=== PATIENT | male | born 1955 | race Caucasian/White ===

== ENCOUNTER 2025-04-01 15:36 | Inpatient (IN) | payer MEDICARE, OTHER, SELFPAY ==
--- NOTE | ~2025-04-01 | XR_ITS ---
EXAMINATION: XR knee LT 3V DATE: 04/01/2025 18:28 INDICATION: Left knee pain, erythema and swelling TECHNIQUE: Anteroposterior, oblique and crosstable lateral views of the left knee were obtained COMPARISON: None. FINDINGS: Alignment is normal. No fracture. At least mild tricompartmental osteoarthritis at the left knee with mild joint space narrowing the medial compartment and small marginal ossified small 3 compartments. Prominent enthesophyte at the lower pole of the patella. No joint effusion/layering lipohemarthrosis. Marked relatively dense prepatellar soft tissue swelling. IMPRESSION: 1. Marked relatively dense prepatellar soft tissue swelling which suggests either hematoma setting of prior trauma or prepatellar bursitis. 2. 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 Reviewed, dictated and finalized at location A. IMPRESSION: 1. Marked relatively dense prepatellar soft tissue swelling which suggests eith er hematoma setting of prior trauma or prepatellar bursitis. 2. At least mild tricompartmental osteoarthritis the left knee with no knee ramirez nt effusion or acute osseous abnormality.
[2025-04-01 15:40] VITALS: BP 168/76; PULSE 91; RESP 18; TEMP 36.8; O2SAT 98
--- NOTE | 2025-04-01 18:44 | ED_ITS ---
HPI - Skin/Abscess/Foreign Bdy General Chief complaint: Skin/Abscess/Foreign Body <Blossom Rodriguez PA-C - Last Filed: 04/01/25 23:45> Stated complaint: L knee infection, L toe infection? <Blossom Rodriguez PA-C - Last Filed: 04/01/25 23:45> Time Seen by Provider: 04/01/25 18:15 <Blossom Rodriguez PA-C - Last Filed: 04/01/25 23:45> Source: patient <Blossom Rodriguez PA-C - Last Filed: 04/01/25 23:45> Mode of arrival: ambulatory <Blossom Rodriguez PA-C - Last Filed: 04/01/25 23:45> Limitations: no limitations <Blossom Rodriguez PA-C - Last Filed: 04/01/25 23:45> History of Present Illness HPI narrative: This is a 69 year old male that presents to the ER for left knee redness, swelling. Reports this has been an ongoing issue over the last month. He was put on a 14 day course of cephalexin by urgent care. He has almost finished this without relief. Denies fevers, decreased ROM. <Blossom Rodriguez PA-C - Last Filed: 04/01/25 23:45> Related Data Home medications: Home Medications ?Medication ?Instructions ?Recorded ?Confirmed ?Last Taken ?Type ascorbate calcium (vitamin C) .ROUTE 04/02/25 Unknown History cholecalciferol (vitamin D3) .ROUTE 04/02/25 Unknown History fish xma-wynna-8-vit C-vit E PO 04/02/25 Unknown Hist ory <Blossom Rodriguez PA-C - Last Filed: 04/01/25 23:45> Allergies/Adverse reactions: Allergies Allergy/AdvReac Type Severity Reaction Status Date / Time No Known Allergies Allergy Verified 04/02/25 00:03 <Blossom Rodriguez PA-C - Last Filed: 04/01/25 23:45> Review of Systems 2 Review of Systems: All systems reviewed & are unremarkable except as noted in HPI and below <Blossom Rodriguez PA-C - Last Filed: 04/01/25 23:45> [facility] Past Medical History Medical History: Medical History (Updated 04/01/25 @ 20:44 by Blossom Rodriguez PA-C) No active medical problems <Blossom Rodriguez PA-C - Last Filed: 04/01/25 23:45> Family History Family History: Family History (Updated 04/02/25 @ 00:25 by Esvin Linder RN) Father Myocardial infarct Sibling Myocardial infarct Cancer Grandparent Cancer <Blossom Rodriguez PA-C - Last Filed: 04/01/25 23:45> Social History Social History: Social History Smoking status: Never smoker Alcohol intake: never Drinks per week: 1 Substance use: never Substance use type: does not use Lack of Transportation: No Lack of Food: Never True Current Housing: I Have Housing Concerned About Future Housing: No Difficulty Paying Gas/Electric Bills: No Difficulty Paying for Meds: No Currently Unemployed: No Education: Decline to Answer Difficulty w/ Childcare or Family Care: No Spiritual care concerns: No <Blossom Rodriguez PA-C - Last Filed: 04/01/25 23:45> Exam 2 Narrative: GENERAL: Well-appearing, well-nourished, and in no acute distress. HEAD: Normocephalic, atraumatic. EYES: EOMI. CHEST: No respiratory distress. HEART: Regular rate EXTREMITIES: Normal range of motion. Edema with overlying erythema to the left knee over the patella. Normal DP pulse. Normal sensation SKIN: Warm, dry, no rash. NEURO: No focal deficits. Alert and oriented x3. 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 I performed all aspects of the MDM as documented. <Miah Brooke MD - Last Filed: 04/02/25 07:16> Consultations Consultation #1: Spoke with Dr. Hernández about patient and workup who will consult <Blossom Rodriguez PA-C - Last Filed: 04/01/25 23:45> Date: 04/01/25 <Blossom Rodriguez PA-C - Last Filed: 04/01/25 23:45> Consultation #2: Spoke with hospitalist about patient and workup who accepts admission < Blossom Rodriguez PA-C - Last Filed: 04/01/25 23:45> Date: 04/01/25 <Blossom Rodriguez PA-C - Last Filed: 04/01/25 23:45> Vital Signs Vital signs: Vital Signs Temperature 36.8 C 04/01/25 15:40 Pulse Rate 91 04/01/25 15:40 Respiratory Rate 18 04/01/25 15:40 Blood Pressure 168/76 H 04/01/25 15:40 Pulse Oximetry 98 04/01/25 15:40 Oxygen Delivery Room Air 04/01/25 15:40 Temperature 36.2 C L 04/02/25 06:00 Pulse Rate 60 04/02/25 06:00 Respiratory Rate 18 04/02/25 06:00 Blood Pressure 142/74 H 04/02/25 06:00 Pulse Oximetry 98 04/02/25 06:00 Oxygen Delivery Room Air 04/01/25 15:40 <Blossom Rodriguez PA-C - Last Filed: 04/01/25 23:45> Vital Signs Temperature 36.8 C 04/01/25 15:40 Pulse Rate 91 04/01/25 15:40 Respiratory Rate 18 04/01/25 15:40 Blood Pressure 168/76 H 04/01/25 15:40 Pulse Oximetry 98 04/01/25 15:40 Oxygen Delivery Room Air 04/01/25 15:40 Temperature 36.2 C L 04/02/25 06:00 Pulse Rate 60 04/02/25 06:00 Respiratory Rate 18 04/02/25 06:00 Blood Pressure 142/74 H 04/02/25 06:00 Pulse Oximetry 98 04/02/25 06:00 Oxygen Delivery Room Air 04/01/25 15:40 <Miah Brooke MD - Last Filed: 04/02/25 07:16> MDM - Skin/Abscess/Foreign Bdy MDM Narrative Medical decision making narrative: Patient presents to the emergency department for left knee pain, redness and swelling. Ongoing over the last several weeks. Reports he has been on 2 rounds of oral antibiotics without relief. He is afebrile and nontoxic appearing. Cbc without leukocytosis. Inflammatory markers are elevated. Left knee x-ray showing dense prepatellar soft tissue swelling. Due to patient failing outpatient therapy will be admitted for IV antibiotics. Ortho is consulted <Blossom Rodriguez PA-C - Last Filed: 04/01/25 23:45> Differential Diagnosis Differential diagnosis: Likely abscess of skin or subcutaneous tissue, cellulitis and other (septic bursitis) <Blossom Rodriguez PA-C - Last Filed: 04/01/25 23:45> Lab Data Attestation: I reviewed the patient's lab results. <Blossom Rodriguez PA-C - Last Filed: 04/01/25 23:45> Result diagrams: 04/01/25 19:03 04/02/25 05:31 <Blossom Rodriguez PA-C - Last Filed: 04/01/25 23:45> Labs: Lab Results 04/01/25 Range/Units 19:03 WBC 6.4 (4.5-10.0) K/mm3 RBC 4.71 (4.6-6.20) M/mm3 Hgb 14.2 (14.0-18.0) g/dL Hct 41.9 L (42.0-52.0) % MCV 89.0 (80-100) fl MCH 30.1 (26-34) pg MCHC 33.9 (32-36) g/dl RDW 12.8 (11.5-14.5) % Plt Count 336 (150-375) k/mm3 MPV 8.6 (7.4-10.4) fl Immature Gran % (Auto) 0.3 (0-0.5) % Neut % (Auto) 57.7 (45.5-73.1) % Lymph % (Auto) 29.9 (18.3-44.2) % [place] % (Auto) 8.7 H (2.6-8.5) % Eos % (Auto) 2.5 (0-4.4) % Baso % (Auto) 0.9 (0.2-1.2) % Lymph # (Auto) 1.92 (0.9-3.2) K/mm3 [place] # (Auto) 0.6 (0.1-0.6) K/mm3 Eos # (Auto) 0.2 (0-0.3) K/mm3 Baso # (Auto) 0.1 (0.0-0.1) K/mm3 Abs Immat Gran (auto) 0.02 (0.00-0.031) K/mm3 Absolute Neuts (auto) 3.7 (1.3-6.7) K/mm3 Absolute Nucleated RBC 0.000 (0.0-0.012) K/mm3 Nucleated RBC % 0.0 (0.0-0.2) % ESR 26 H (0-20) mm/hr Sodium 141 (137-145) mmol/L Potassium 4.0 (3.4-5.0) mmol/L Chloride 106 (98-107) mmol/L Carbon Dioxide 26 (22-30) mmol/L Anion Gap 9 (4-12) mmol/L BUN 22 H (9-20) mg/dL Creatinine 1.00 (0.7-1.3) mg/dL Estim Creat Clear Calc 76 ml/min Estimated GFR > 60 (59 - ) Glucose 125 H (65-110) mg/dL Lactic Acid 1.5 (0.7-2.0) mmol/L Uric Acid 5.8 (3.5-8.5) mg/dL Calcium 9.4 (8.4-10.2) mg/dL Total Bilirubin 0.4 (0.2-1.3) mg/dL AST 27 (17-59) U/L ALT 28 (6-50) U/L Alkaline Phosphatase 80 (38-126) U/L C-Reactive Protein 1.4 H (<1.0) mg/dL Total Protein 7.7 (6.3-8.2) g/dL Albumin 4.2 (3.5-5.1) g/dL <Blossom Rodriguez PA-C - Last Filed: 04/01/25 23:45> Lab Results 04/01/25 Range/Units 19:03 WBC 6.4 (4.5-10.0) K/mm3 RBC 4.71 (4.6-6.20) M/mm3 Hgb 14.2 (14.0-18.0) g/dL Hct 41.9 L (42.0-52.0) % MCV 89.0 (80-100) fl MCH 30.1 (26-34) pg MCHC 33.9 (32-36) g/dl RDW 12.8 (11.5-14.5) % Plt Count 336 (150-375) k/mm3 MPV 8.6 (7.4-10.4) fl Immature Gran % (Auto) 0.3 (0-0.5) % Neut % (Auto) 57.7 (45.5-73.1) % Lymph % (Auto) 29.9 (18.3-44.2) % [place] % (Auto) 8.7 H (2.6-8.5) % Eos % (Auto) 2.5 (0-4.4) % Baso % (Auto) 0.9 (0.2-1.2) % Lymph # (Auto) 1.92 (0.9-3.2) K/mm3 [place] # (Auto) 0.6 (0.1-0.6) K/mm3 Eos # (Auto) 0.2 (0-0.3) K/mm3 Baso # (Auto) 0.1 (0.0-0.1) K/mm3 Abs Immat Gran (auto) 0.02 (0.00-0.031) K/mm3 Absolute Neuts (auto) 3.7 (1.3-6.7) K/mm3 Absolute Nucleated RBC 0.000 (0.0-0.012) K/mm3 Nucleated RBC % 0.0 (0.0-0.2) % ESR 26 H (0-20) mm/hr Sodium 141 (137-145) mmol/L Potassium 4.0 (3.4-5.0) mmol/L Chloride 106 (98-107) mmol/L Carbon Dioxide 26 (22-30) mmol/L Anion Gap 9 (4-12) mmol/L BUN 22 H (9-20) mg/dL Creatinine 1.00 (0.7-1.3) mg/dL Estim Creat Clear Calc 76 ml/min Estimated GFR > 60 (59 - ) Glucose 125 H (65-110) mg/dL Lactic Acid 1.5 (0.7-2.0) mmol/L Uric Acid 5.8 (3.5-8.5) mg/dL Calcium 9.4 (8.4-10.2) mg/dL Total Bilirubin 0.4 (0.2-1.3) mg/dL AST 27 (17-59) U/L ALT 28 (6-50) U/L Alkaline Phosphatase 80 (38-126) U/L C-Reactive Protein 1.4 H (<1.0) mg/dL Total Protein 7.7 (6.3-8.2) g/dL Albumin 4.2 (3.5-5.1) g/dL <Miah Brooke MD - Last Filed: 04/02/25 07:16> Imaging Data Radiologist's impression: ITS Impressions Knee X-Ray 04/01/25 18:44 IMPRESSION: 1. Marked relatively dense prepatellar soft tissue swelling which suggests either hematoma setting of prior trauma or prepatellar bursitis. 2. 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 <Blossom Rodriguez PA-C - Last Filed: 04/01/25 23:45> Critical Care Time Critical Care Time Critical Care Time: No <Blossom Rodriguez PA-C - Last Filed: 04/01/25 23:45> Discharge Plan Discharge Clinical Impression: Septic prepatellar bursitis of left knee <Blossom Rodriguez PA-C - Last Filed: 04/01/25 23:45> Patient Disposition: Still a Patient <ROXANNA Gil Last Filed: 04/01/25 23:45> Condition: Stable <ROXANNA Gil Last Filed: 04/01/25 23:45>
[2025-04-01 19:01] VITALS: BP 139/78; PULSE 65; RESP 15; O2SAT 98
[2025-04-01 19:16] LABS: Hematocrit 41.9 % (42.0-52.0); Hemoglobin 14.2 g/dL (14.0-18.0); Immature Granulocyte Percent A 0.3 % (0-0.5); Lymphocytes Absolute Auto 1.92 K/mm3 (0.9-3.2); Mean Corpuscular HGB Conc 33.9 g/dl (32-36); Mean Corpuscular Hemoglobin 30.1 pg (26-34); Mean Corpuscular Volume 89.0 fl (80-100); Nucleated Red Blood Cells Absolute Auto 0.000 K/mm3 (0.0-0.012); Nucleated Red Blood Cells Perc 0.0 % (0.0-0.2); Platelet Count Result 336 k/mm3 (150-375); Red Blood Count 4.71 M/mm3 (4.6-6.20); White Blood Count 6.4 K/mm3 (4.5-10.0)
[2025-04-01 19:25] LABS: Alanine Aminotransferase 28 U/L (6-50); Albumin Level 4.2 g/dL (3.5-5.1); Alkaline Phosphatase 80 U/L (38-126); Anion Gap 9 mmol/L (4-12); Aspartate Amino Transferase 27 U/L (17-59); Bilirubin,Total 0.4 mg/dL (0.2-1.3); Blood Urea Nitrogen 22 mg/dL (9-20); CRP 1.4 mg/dL (<1.0); Calcium 9.4 mg/dL (8.4-10.2); Carbon Dioxide 26 mmol/L (22-30); Chloride 106 mmol/L (98-107); Estimated CRCL calculation 76 ml/min; Estimated Glomerular Filt Rate > 60; Glucose 125 mg/dL (65-110); Potassium 4.0 mmol/L (3.4-5.0); Sodium 141 mmol/L (137-145); Total Protein 7.7 g/dL (6.3-8.2); Uric Acid 5.8 mg/dL (3.5-8.5)
--- OUTSIDE RECORDS SUMMARY | 2025-04-01 19:38 | XMS_ITS | Clinical Summary ---
Author Organization [email or web address] [facility] Address [address] [place] [address] [address] [place] [address] Care Team Providers Care Furnace Reliner Name Role Phone Pcp, No MD Primary Care Provider Unavailabl e Provider, No Attributed RESOURCE Unavailable Unavailable Allergies Active Allergy Reactions Criticality Noted Date Comments Sulfamethoxazole Itching 07/04/2021 Trimethoprim Itching 07/04/2021 Medications diclofenac (VOLTAREN) 1 % gelIndications: Prepatellar bursitis of left knee Apply 4 g topically 4 times a day 150 g 2 5 Active cephalexin (KEFLEX) 500 mg capsuleIndicati ons:Prepatellar bursitis of left knee Take 1 capsule (500 mg) by mouth 3 times a day for 14 days 42 capsule 5 04/02/20 25 Active predniSONE 20 mg tabletIndicatio ns:Prepatellar bursitis of left knee Take 2 tablets (40 mg) by mouth 1 time per day for 5 days 10 tablet 5 03/13/20 25 cephalexin (KEFLEX) 500 mg capsuleIndicati ons:Prepatellar bursitis of left knee Take 1 capsule (500 mg) by mouth 3 times a day for 7 days 21 capsule 5 03/15/20 25 Active Problems Problem Noted Date Diagnosed Date Knee pain, bilateral 08/11/2020 Suprapatellar bursitis 08/11/2020 Thoracic or lumbosacral neuritis or radiculitis 08/11/2020 [place] on CPAP 08/11/2020 Obesity (BMI 30-39.9) 06/04/2019 History of nephrolithiasis 06/04/2019 Gastroesophageal reflux disease without esophagi tis 01/11/2019 PVC's (premature ventricular contractions) 12/07 Bilateral primary osteoarthritis of knee 018 Infection of olecranon bursa 10/14/2006 Aldridge's cyst, ruptured 12/02/2003 Overview (09/13/2013): Right knee Hematochezia Colitis Resolved Problems Problem Noted Date Diagnosed Date Resolved Date Acute respiratory failure with hypoxia 05/30/2019 06/02/2019 Renal colic 05/30/2019 06/02/2019 SOB (shortness of breath) 05/30/2019 Left ureteral stone 05/30/2019 06/02/20 19 Encounters Date Type Department Care Team Description 03/19/2025 6:05 PM MDT Office Visit [address] [address] Beryl Bermudez MD Prepatellar bursitis of left knee (Primary Dx) Discharge Disposition: Home, Self Care 03/08/2025 8:35 AM MDT Office Visit [address] [address] Sudarshan Mancini, RESEARCH ENGINEER MARINE EQUIPMENT-ALIGNMENT MECHANIC Prepatellar bursitis of left knee (Primary Dx) Discharge Disposition: Home, Self Care from Last 3 Months Immunizations Immunization Administration Dates Next Due MMR 06/02/1993 TDAP 11/16/2016,02/16/2015,12/22/2011 Td Vaccine (Tenivac) 7 Years and Up 01/11/1994 Family History Medical History Relation Comments Prostate Cancer Brother Heart Disease Father Diabetes Mother No Known Problems Son 1 Thyroid Disease Son 2 No Known Problems Son 3 Relation Status Comments Brother Father Mother Son 1 Alive Son 2 Alive Son 3 Alive Social History Tobacco Use Types Packs/Day Years Used Date Smoking Tobacco: Never Smokeless Tobacco: Never Alcohol Use Standard Drinks/Week Comments Yes 0 (1 standard drink = 0.6 oz pur e alcohol) [facility] Utilities Answer Date Recorded In the past 12 months has e electric, gas, oil, or water company threatened to shut off services in your home? Patient declined 06/08/2024 PHQ-2 Answer Date Recorded PHQ-2 Total 0 03/08/2025 Hunger Vital Sign Answer Date Recorded Within the past 12 months, y ou worried that your food would run out before you got the money to buy more. Patient declined Within the past 12 months, t he food you bought just didn't last and you didn't have money to get more. Patient declined 01/2024 PRAPARE - Transportation Answer Date Re corded In the past 12 months, has l ack of transportation kept you from medical appointments or from getting medications? Patient declined 06/08/2024 In the past 12 months, has l ack of transportation kept you from meetings, work, or from getting things needed for daily living? Patient declined 06/08/2024 Housing Stability Vital Sign Answer [place] e Recorded In the last 12 months, was t here a time when you were not able to pay the mortgage or rent on time? Patient declined 06/08/20 24 Number of Times Moved in the Last Year Not on fi le 06/08/2024 At any time in the past 12 m [facility], were you homeless or living in a chcf (including now)? 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 Gender Identity Not on file Sexual Orientation Not on file Last Filed Vital Signs Vital Sign Reading Time Taken Comments Blood Pressure 156/76 03/19/2025 6:35 PM MDT Pulse 72 03/19/2025 6:35 PM MDT Temperature 37.3 C (99.2 F) 03/19/2025 6:35 PM MDT Respiratory Rate 16 03/19/2025 6:35 PM MDT Oxygen Saturation 98% 03/19/2025 6:35 PM MDT Inhaled Oxygen Concentration - - Weight 103.8 kg (228 lb 12.8 oz) 03/08/2025 8:42 AM MDT Height 181.2 cm (5' 11.34) 06/11/2024 8:14 AM M Body Mass Index 31.61 06/11/2024 8:14 AM [facility] Plan of Treatment Health Maintenance Due Date Last Done Comments Pneumococcal Vaccine 50yr + (1 of 1 - PCV) 2006 Zoster Vaccine (1 of 2) 2006 [employer] Directive document 2021 Influenza Vaccine (#1) 2025 TDAP/TD VACCINE (4 - Td or Tdap) 11/16/2026 11/16/2016, 02/16/2015, 12/22/2011, Additional history exists Colorectal Cancer Screening 12/21/202612/02, 10/15/2004 (Previously completed) ALT 06/11/2027 06/11/2024, 03/04, 05/29/2019, Additional history exists AST 06/11/2027 06/11/2024, 03/04, 05/29/2019, Additional history exists Diabetes Screening 06/11/2027 06/11/2024, 0 03/26/2020, 08/06/2019, Additional history exists Platelets 06/11/2027 06/11/2024, 06/02, 03/26/2020, Additional history exists Lipid Screening 06/11/2029 06/11/2024, 03/04, 08/06/2019, Additional history exists RSV Vaccine, Adult (1 - 1-dose 75+ series) 2031 Hepatitis C Screening 07/26/2033 Postpo nivia from 1955 (Patient Refused) Hepatitis B Vaccine Aged Out No longe r eligible based on patient's age to complete this topic Medical Devices Implanted Type Area Health Safety Manager Device Identifier Shelf Expiration Date Model / Serial / Lot Stnt Inlay Wo Wire 6fr 28cm N [id number] - [id number] Implanted:Qty: 1 on 05/31/2019 by Kristopher Dent MD at [facility] Explanted:10/2018 by Kristopher Dent MD (Quantity not on file) Urology Left: URETER BARD 07/06/2023 [id number] / / [id number] Procedures Procedure Name Priority Date/Time Associated Diagnosis Comments LAB ONLY-COMPLETE BLOOD COUNT WITH DIFFERENTIAL Routine 06/11/2024 8:54 AM MST PVC's (premature ventricular contractions) LIPID PANEL Routine 06/11/2024 8:54 AM MST PVC's (premature ventricular contractions) COMPREHENSIVE METABOLIC PANEL Routine 06/11/2024 8:54 AM [facility] PVC's (premature ventricular contractions) COLONOSCOPY Routine 12/21/2016 from Last 3 Months or Most Recently Relevant to Health Maintenance Results * LAB ONLY-COMPLETE BLOOD COUNT WITH DIFFERENTIAL (06/11/2024 8:54 AM [facility]) WBC 6.5 4.0 - 11.0 K/uL 06/11/2024 9:01 AM [facility] RBC 5.13 4.40 - 5.80 M/uL 06/11/2024 9:01 AM [facility] Hemoglobin 15.3 13.5 - 17.5 g/dL 06/11/2024 9:01 AM [facility] Hematocrit 45.1 40.0 - 50.0 % 06/11/2024 9:01 AM [facility] MCV 87.9 80.0 - 98.0 fL 06/11/2024 9:01 AM [facility] MCH 29.8 25.5 - 34.0 pg 06/11/2024 9:01 AM [facility] MCHC 33.9 31.5 - 36.5 g/dL 06/11/2024 9:01 AM [facility] RDW-CV 13.5 11.5 - 15.5 % 06/11/2024 9:01 AM [facility] RDW-SD 43.0 35.5 - 50.0 fl 06/11/2024 9:01 AM [facility] Platelet Count 311 140 - 400 K/uL 06/11/2024 9:01 AM [facility] MPV 9.0 8.5 - 12.0 fL 06/11/2024 9:01 AM [facility] Seg Neut Absolute 3.8 1.8 - 8.0 K/uL 06/11/2024 9:01 AM [facility] Lymphocytes Absolute 1.7 0.8 - 4.1 K/uL 06/11/2024 9:01 AM [facility] Monocytes Absolute 0.6 0.0 - 1.0 K/uL 06/11/2024 9:01 AM [facility] Eosinophils Absolute 0.2 0.0 - 0.7 K/uL 06/11/2024 9:01 AM [facility] Basophil Absolute 0.0 0.0 - 0.2 K/uL 06/11/2024 9:01 AM [facility] Neutrophils Abs. (Segs and Bands) 3,800 /uL 06/11/2024 9:01 AM [facility] Neutrophils Percent 59.1 % 06/11/2024 9:01 AM [facility] Lymphocytes Percent 26.7 % 06/11/2024 9:01 AM [facility] Monocytes Percent 9.9 % 06/11/2024 9:01 AM [facility] Eosinophils Percent 3.7 % 06/11/2024 9:01 AM [facility] Basophil Percent 0.6 % 06/11/20 9:01 AM [facility] Blood BLOOD SPECIMEN / Unknown 06/11/2024 8:54 AM [facility] 06/11/2024 8:54 AM [facility] [place] MD LAB ONLY ORDERS Final Result Performing Organization Address City/State/[facility] Co de Phone Number [facility] [address] [place] [id number] * (ABNORMAL) LIPID PANEL (06/11/2024 8:54 AM [facility]) Cholesterol 175 <200 mg/dL 06/11/2024 10:01 AM [facility] Triglyceride 87 <150 mg/dL 06/11/2024 10:01 AM [facility] HDL 37(L) >=40 mg/dL 06/11/2024 10:01 AM [facility] LDL 121(H) <=100 mg/dL 06/11/2024 10:01 AM [facility] Blood BLOOD SPECIMEN / Unknown 06/11/2024 8:54 AM [facility] 06/11/2024 8:54 AM [facility] us [place] MD LAB BLOOD Final Result [facility] [address] [place], [place] [id number] * (ABNORMAL) COMPREHENSIVE METABOLIC PANEL (06/11/2024 8:54 AM [facility]) Glucose 118(H) 70 - 99 mg/dL 06/11/2024 10:01 AM [facility] BUN 17 6 - 22 mg/dL 06/11/2024 10:01 AM [facility] Creatinine 0.97 0.73 - 1.18 mg/dL 06/11/2024 10:01 AM [facility] BUN/Creatinine Ratio 17.5 10.0 - 25.0 06/11/2024 10:01 AM [facility] Sodium 142 136 - 145 meq/L 06/11/2024 10:01 AM [facility] Potassium 4.2 3.5 - 5.1 meq/L 06/11/2024 10:01 AM [facility] Chloride 109 98 - 109 meq/L 06/11/2024 10:01 AM [facility] CO2 22 20 - 29 meq/L 06/11/2024 10:01 AM [facility] Anion Gap with K 15 6 - 20 meq/L 06/11/2024 10:01 AM [facility] Calcium 9.5 8.5 - 10.5 mg/dL 06/11/2024 10:01 AM [facility] Protein Total 7.9 6.0 - 8.3 g/dL 06/11/2024 10:01 AM [facility] Albumin 4.2 3.2 - 4.6 g/dL 06/11/2024 10:01 AM [facility] Alkaline Phosphatase 86 40 - 150 U/L 06/11/2024 10:01 AM [facility] AST - SGOT 29 <6 - 45 U/L 06/11/2024 10:01 AM [facility] ALT - SGPT 29 <6 - 55 U/L 06/11/2024 10:01 AM [facility] Bilirubin Total 0.7 0.2 - 1.2 mg/dL 06/11/2024 10:01 AM [facility] Age 68 Years 06/11/2024 10:01 AM [facility] eGFRcr() 86 >=60 mL/min/1.7 3m2 06/11/2024 10:01 AM [facility] Blood BLOOD SPECIMEN / Unknown 06/11/2024 8:54 AM [facility] 06/11/2024 8:54 AM [facility] [place] MD LAB BLOOD Final Result Performing Organization Address [facility]/ZIP Co de Phone Number [facility] [address] [place] [address] * COLONOSCOPY (12/21/2016) Colonoscopy per s history [facility] us Abstract Provider IP PROCEDURES Final Result Performing Organization Address City/[facility] Co de Phone Number [facility] [address] [place] [address] from Last 3 Months or Most Recently Relevant to Health Maintenance Advance Directives For more information, please contact: [phone] * Full Code (Latest Code Status on File) Date Activated Date Inactivated Comments 05/30/2019 5:39 AM 06/01/2019 9:13 PM * Full Code Date Activated Date Inactivated Comments 01/21/2019 8:04 AM 01/21/2019 7:29 PM * Full Code Date Activated Date Inactivated Comments 11/16/2018 9:05 AM 11/16/2018 6:50 PM * Full Code Date Activated Date Inactivated Comments 12/21/2016 9:15 AM 12/22/2016 6:16 AM Care Teams Furnace Reliner Relationship Specialty Start Date End Date PcpJacinta MD You have no PCP on file PCP - General 03/08/25 Provider, No Attributed, RESOURCE [address] PCP - Attributed Provider 03/27/25
--- OUTSIDE RECORDS SUMMARY | 2025-04-01 19:38 | XMS_ITS | Encounter Summary ---
Author Organization [employer] [facility] Address [address] [place] [address] [address] [place] [address] Care Team Providers Care Pipe Puller Name Role Phone Vitor Lake MD Primary Care Provider [phone] Vitor Lake MD Unavailable Vitor Lake MD Unavailable Provider, No Attributed RESOURCE Unavailable Unavailable Vitor Lake MD Unavailable Pcp, Jacinta MCKINLEY Primary [facility] Provider [facility], No Attributed RESOURCE Unavailable Unavailable Encounter Details Date Type Department Care Team (Latest Contact Info) Description 05/30/2019 Radiology Encounter [facility] CT SCAN [address] [place] [address] [id number] Sylvester Branch, RT(R) [address] [place] [phone] Abdominal pain (Primary Dx) Social History Tobacco Use Types Packs/Day Years Used Date Smoking Tobacco: Never Smokeless Tobacco: Never Alcohol Use Standard Drinks/Week Comments Yes 0 (1 standard drink = 0.6 oz pur e alcohol) occasional PHQ-2 Answer Date Recorded PHQ-2 Score 0 05/23/2018 Sex and Gender Information Value Date Recorded Sex Assigned at Not on file Legal Sex Male 3:03 AM MANAGER MECHANICAL Gender Identity Not on file Sexual Orientation Not on file documented as of this encounter Functional Status * Is the person deaf or does he/she have serious difficulty hearing? Answer Date of Assessment Author No 05/30/2019 5:00 AM Anibal Mccarthy RN * Is this person blind or does he/she have difficulty seeing even when wearing glasses? Answer Date of Assessment Author No 05/30/2019 5:00 AM Anibal Mccarthy RN * Do you have difficulty with walking, balance, climbing stairs, or had a fall in the last 3 months? Answer Date of Assessment Author No 05/30/2019 5:37 AM Anibal Mccarthy RN * Does the patient have difficulty dressing or bathing? Answer Date of Assessment Author No 05/30/2019 5:00 AM Anibal Mccarthy RN * Because of a physical, mental, or emotional condition; does this person have difficulty doing errands alone such as visiting a doctor's office or shopping? Answer Date of Assessment Author No 05/30/2019 5:00 AM Anibal Mccarthy RN documented as of this encounter Mental Status * Because of a physical, mental, or emotional condition; does this person have serious difficulty concentrating, remembering, or making decisions? Answer Entry Date Author No 05/30/2019 5:00 AM Anibal Mccarthy RN documented in this encounter Plan of Treatment Not on file documented as of this encounter Results * RAD OUTSIDE STUDY WITHOUT INTERP (05/28/2019 9:15 AM MANAGER MECHANICAL) Narrative Epic, User - 05/30/2019 9:13 AM MANAGER MECHANICAL This order was placed to create an order for Film storage in PACS. Provider Unlisted RADIOLOGY DIAGNOSTIC Final Res ult documented in this encounter Visit Diagnoses Diagnosis Abdominal pain Abdominal pain, unspecified site Abdominal pain- Primary Abdominal pain, unspecified site documented in this encounter Care Teams Pipe Puller Relationship Specialty Start Date End Date Vitor Lake MD [address] [place], [place] [id number] PCP - General Internal Medicine 01/11/19 10/19/22 Vitor Lake MD [address] [place], [place] [id number] PCP - Attributed Provider 04/26/19 6/10/21 Vitor Lake MD [address] [place] [address] PCP - Attributed Provider 12/25/20 Provider, No Attributed, RESOURCE [address] PCP - Attributed Provider 04/26/23 Vitor Lake MD [address] [place], [place] [id number] PCP - Attributed Provider 06/26/2403/04 PcpJacinta MD You have no PCP on file PCP - General 03/08/25 Provider, No Attributed, RESOURCE [address] PCP - Attributed Provider 03/27/25 documented as of this encounter
--- OUTSIDE RECORDS SUMMARY | 2025-04-01 19:38 | XMS_ITS | Clinical Summary ---
Author Organization [facility] Address [address] [place] [address] Phone Care Team Providers Care On Awake Counselor Name Role Phone Demetrice muñoz AILYN Primary Care Provider [phone] Allergies No known active allergies Medications ibuprofen (ADVIL,MOTRIN) 200 MG tablet Take 400 mg by mouth every 6 (six) hours as needed for pain. Active acetaminophen (TYLENOL) 500 MG tablet Take 1,000 mg by mouth every 6 (six) hours as needed for pain. Active Active Problems Problem Noted Date Diagnosed Date Hypersomnia 01/11/2019 Cellulitis 01/11/2019 PVC's (premature ventricular contractions) 01/11 Gastroesophageal reflux disease without esophagi tis 01/11/2019 False positive cardiac stress test 01/11/2019 Family History Medical History Relation Name Comments Heart disease Brother Prostate cancer Brother Heart disease Father Diabetes Mother Heart disease Mother No Known Problem Son 1 Thyroid disease Son 2 No Known Problem Son 3 Relation Name Status Comments Brother Alive Father (Age 69) Mother (Age 93) Son 1 Son 2 Son 3 Social History Tobacco Use Types Packs/Day Years Used Date Smoking Tobacco: Never Smokeless Tobacco: Never Alcohol Use Standard Drinks/Week Comments Yes 0 (1 standard drink = 0.6 oz pur e alcohol) very seldom PHQ-2 Answer Date Recorded PHQ-2 Score 0 08/24/2019 Sex and Gender Information Value Date Recorded Sex Assigned at Not on file Legal Sex Male 5:23 PM CDT Gender Identity Not on file Sexual Orientation Not on file Last Filed Vital Signs Vital Sign Reading Time Taken Comments Blood Pressure 122/66 01/11/2019 1:55 PM CDT Pulse 68 01/11/2019 1:55 PM CDT Temperature - - Respiratory Rate 16 01/11/2019 1:55 PM CDT Oxygen Saturation - - Inhaled Oxygen Concentration - - Weight 108.9 kg (240 lb) 01/11/2019 1:55 PM CDT Height 180.3 cm (5' 11) 01/11/2019 1:55 PM CDT Body Mass Index 33.47 01/11/2019 1:55 PM CDT Plan of Treatment Not on file Insurance [facility] Member Subscriber Plan / Payer (Ef fective 2018-Present) Name:Srinath Verma Relation to Subscriber:Self Name:Srinath Verma Payer ID:[id number] Type:Not on file Address: [address] [place] [id number] Care Teams On Awake Counselor Relationship Specialty Start Date End Date Demetirce Freitas PAC PCP - General 03/05/15
--- OUTSIDE RECORDS SUMMARY | 2025-04-01 19:38 | XMS_ITS | Referral Summary ---
Author Organization [facility] Address [address] [place] [address] Phone Care Team Providers Care Yard Motor Operator Name Role Phone FortinoDemetrice AILYN Primary Care Provider [phone] Allergies No known active allergies Medications ibuprofen [...] 01/11/2019 False positive cardiac stress test 01/11/2019 Social History Tobacco Use Types Packs/Day Years [...] Plan of Treatment Not on file Insurance [facility] Member Subscriber Plan / Payer (Ef fective 2018-Present) Name:Srinath Verma Relation to Subscriber:Self Name:Srinath Verma Payer ID:[id number] Type:Not on file Address: [address] [place] [phone] Care Teams Yard Motor Operator Relationship Specialty Start Date End Date Demetrice Freitas PAC PCP - General 03/05/15
--- OUTSIDE RECORDS SUMMARY | 2025-04-01 19:38 | XMS_ITS | Encounter Summary ---
Author Organization [facility] [facility] Address [address] [place] [address] [address] [place] [address] Care Team Providers Care Components Engineer Name Role Phone Vitor Lake MD Primary Care Provider [phone] Vitor Lake MD Unavailable Vitor Lake MD Unavailable Provider, No Attributed RESOURCE Unavailable Unavailable Vitor Lake MD Unavailable Pcp, Jacinta MCKINLEY Primary Care Provider [facility] Provider, No Attributed RESOURCE Unavailable Unavailable Encounter Details Date Type Department Care Team (Late st Contact Info) Description 05/30/2019 E-Visit [facility] RADIOLOGY [address] [place] [phone] Susan Ortiz, RT(R) [address] [place] [address] Social History Tobacco Use Types Packs/Day Years Used Date Smoking Tobacco: Never Smokeless Tobacco: Never Alcohol Use Standard Drinks/Week Comments Yes 0 (1 standard drink = 0.6 oz pur e alcohol) occasional PHQ-2 Answer Date Recorded PHQ-2 Score 0 05/23/2018 Sex and Gender Information Value Date Recorded Sex Assigned at Not on file Legal Sex Male 3:03 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 Gender Identity Not on file Sexual Orientation [...] on file documented as of this encounter Visit Diagnoses Not on filedocumented in this encounter Care Teams Components Engineer Relationship Specialty Start Date End Date Vitor Lake MD [address] [place], [place] [id number] PCP - General Internal Medicine 01/11/19 10/19/22 Vitor Lake MD [address] [place], [place] [id number] PCP - Attributed Provider 04/26/1912/02 Vitor Lake MD [address] [place], [place] [id number] PCP - Attributed Provider 12/25/20 Provider, No Attributed, RESOURCE [address] PCP - Attributed Provider 04/26/23 Vitor Lake MD [address] [place], [place] [id number] PCP - Attributed Provider 06/26/2403/04 PcpJacinta, You have no PCP on file PCP - General 03/08/25 Provider, No Attributed, RESOURCE [address] [place] [address] PCP - Attributed Provider 03/27/25 documented as of this encounter
[2025-04-01 19:48] VITALS: BP 154/80; PULSE 62; RESP 18; TEMP 36.6; O2SAT 99
[2025-04-01] MEDS: VANCOMYCIN 1,250 MG/NS 250 ML 1,250 MG/250 ML BAG 166.67 MG IVPB (20:59)
[2025-04-01 22:23] VITALS: BP 126/71; PULSE 63; RESP 18; TEMP 36.7; O2SAT 100
[2025-04-02] MEDS: VANCOMYCIN 1,250 MG/NS 250 ML 1,250 MG/250 ML BAG 166.67 MG IVPB (00:06)
[2025-04-02 00:10] VITALS: BMI 31.2
[2025-04-02 00:17] VITALS: BP 157/83; PULSE 64; RESP 18; TEMP 36.4; O2SAT 99
--- NOTE | 2025-04-02 00:21 | PC.NURSE ---
PATIENT ARRIVED ON FLOOR AT 23:45
[2025-04-02 06:00] VITALS: BP 142/74; PULSE 60; RESP 18; TEMP 36.2; O2SAT 98
[2025-04-02 06:32] LABS: Estimated CRCL calculation 96 ml/min; Estimated Glomerular Filt Rate > 60
--- NOTE | 2025-04-02 07:50 | PM.IMHP ---
H&P: HPI History of Present Illness Date/Time: 04/02/25 07:51 Chief Complaint: Left knee infection Narrative: This is a 69-year-old male patient who has had history of multiple areas of bursitis. The patient stated that he has had a bursa removed in the past. Stated he has been on antibiotics several times for bursitis. He stated that he is from [place] of town. The patient stated he went to urgent care sent him to the emergency room. Patient stated he has been having issues with his left knee with redness and swelling for the last month. The patient recently completed a 14 day course of Keflex for burstitis from a local urgent care. The patient stated he finished all of the antibiotics without any resolution of symptoms. His white count is normal and he is afebrile. His blood sugars 125. His C reactive protein is 1.4. X-ray of the left knee was as. Marked relatively dense prepatellar soft tissue swelling which suggests either hematoma setting of prior trauma or prepatellar bursitis. 2. 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 The patient was started on vancomycin. The knee was not drained at this time. Orthopedic consultation was placed. The patient is being admitted to observation status on 04/02/2025. Review of Systems Constitutional: Constitutional: Reports as per HPI and Reports no additional constitutional complaints Eyes: Eyes: Reports as per HPI and Reports no additional eye complaints ENT: Reports system reviewed and no additional complaints, except as documented and Reports Normal hearing present Cardiovascular: Cardiovascular: Reports no additional cardiovascular complaints Respiratory: Respiratory: Reports as per HPI and Reports no additional respiratory complaints Gastrointestinal: Gastrointestinal: Reports as per HPI and Reports no additional gastrointestinal complaints Musculoskeletal: Musculoskeletal: Reports no additional musculoskeletal complaints Integumentary/Breasts: Skin/Breast: Reports system reviewed and no additional complaints, except as docu Neurologic: Reports system reviewed and no additional complaints, except as documented and Reports Normal hearing present Psychiatric: Psychiatric: Reports no additional psychiatric complaints and Reports as per HPI Hematologic/Lymphatic: Hematologic/Lymphatic: Reports no additional hematologic/lymphatic complaints Allergic/Immunologic: Allergic/Immunologic: Reports no additional allergic/immunologic complaints [facility] Past Medical History Medical History (Updated 04/02/25 @ 07:58 by Arianna Perez, TISH) Small bowel obstruction Ruptured appendix Kidney stone Bursitis No active medical problems Surgical History Surgical History (Updated 04/02/25 @ 07:55 by Arianna Perez APRN) H/O hernia repair H/O cataract extraction H/O eye surgery History of appendectomy Family History Family History Father Myocardial infarct Sibling Myocardial infarct Cancer Grandparent Cancer Social History Social History (Updated 04/02/25 @ 07:56 by Arianna Perez APRN) Social History: The patient lives with his . He has 3 children. 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 Code status: Full code. Smoking status: Never smoker Alcohol intake: never Drinks per week: 1 Substance use: never Substance use type: does not use Lack of Transportation: No Lack of Food: Never True Current Housing: I Have Housing Concerned About Future Housing: No Difficulty Paying Gas/Electric Bills: No Difficulty Paying for Meds: No Currently Unemployed: No Education: Decline to Answer Difficulty w/ Childcare or Family Care: No Spiritual care concerns: No Meds Home Medications and Allergies Home Medications ?Medication ?Instructions ?Recorded ?Confirmed ?Type ascorbate calcium (vitamin C) 5,000 mg PO DAILY 04/02/25 04/02/25 History cholecalciferol (vitamin D3) 5,000 mcg PO DAILY 04/02/25 04/02/25 History fish [id number] C-vit E 3 g PO DAILY 04/02/25 04/02/25 History Allergies Allergy/AdvReac Type Severity Reaction Status Date / Time No Known Allergies Allergy Verified 04/02/25 00:03 Vital Signs Vital Signs - 24 hr 04/01/25 15:40 04/01/25 19:01 04/01/25 19:48 Temperature 98.2 F 97.9 F Pulse Rate 91 65 62 Respiratory Rate 18 15 18 Blood Pressure 168/76 H 139/78 154/80 H Pulse Oximetry 98 98 99 Oxygen Delivery Room Air 04/01/25 22:23 04/02/25 00:17 04/02/25 06:00 Temperature 98.1 F 97.6 F 97.2 F L Pulse Rate 63 64 60 Respiratory Rate 18 18 18 Blood Pressure 126/71 157/83 H 142/74 H Pulse Oximetry 100 99 98 Oxygen Delivery Exam Const: General: cooperative, healthy appearing, comfortable, no acute distress, well developed, awake, Physically active, average body habitus and well nourished Nutritional Appearance: average body habitus and well nourished Orientation/consciousness: oriented to person, oriented to place, oriented to time and patient oriented x3 Limitations: no limitations HENMT: Head: normal to inspection Eyes: General: appearance normal, both eyes and all related structures Alignment and Position: alignment normal Neck: Neck: normal visual inspection, full ROM and trachea midline Chest: Chest palpation & inspection: normal inspection of the chest Resp: Effort & Inspection: normal respiratory effort Auscultation: clear to auscultation bilaterally Percussion: percussion normal Cardio: Palpation: normal PMI Rate: regular rate Rhythm: regular rhythm GI: Inspection: normal to inspection Percussion: Yes normal to percussion Auscultation: normal bowel sounds Rectal Exam: deferred : General: Yes no CVA tenderness Back/Spine/Pelvis: Back: no CVA tenderness Cervical Spine: cervical ROM normal Thoracic/Lumbar Spine: thoracic and lumbar spine normal to inspection Pelvis: no pain with anterior-posterior compression Skin: General skin exam: normal color Other: Erythema and swelling throughout the whole anterior aspect of the patella. No open areas or drainage noted. Fluctuance is noticed with tenderness. Neuro: General: oriented to person, oriented to place, oriented to time and patient oriented x3 Cranial nerves: Yes Equal, round and reactive pupils present and Yes Normal hearing present Cognition (Neuro): normal cognition Speech: normal speech Gait exam (Neuro): Normal gait present Motor exam (neuro): 5/5 motor strength present throughout Sensory Exam: normal sensation Extrem: General: normal to inspection Right upper extremity: normal to inspection and shoulder/upper arm Left upper extremity: normal to inspection and shoulder/upper arm Right lower extremity: normal to inspection Left lower extremity: normal to inspection Psych: Appearance: grossly normal Mental Status: mental status grossly normal Speech and movement: Normal speech and movement present Affect: normal affect Attitude: cooperative Thought process: Normal thought process present Thought content: Yes Normal thought content present Insight: Good insight present (Psych) Judgement: Good judgement present (Psych) H&P: Results Labs Labs: Short CBC 04/01/25 Range/Units 19:03 WBC 6.4 (4.5-10.0) K/mm3 Hgb 14.2 (14.0-18.0) g/dL Hct 41.9 L (42.0-52.0) % Plt Count 336 (150-375) k/mm3 BMP 04/01/25 04/02/25 19:03 05:31 Sodium 141 Potassium 4.0 Chloride 106 Carbon Dioxide 26 BUN 22 H Creatinine 1.00 0.78 Glucose 125 H Calcium 9.4 Liver Function 04/01/25 Range/Units 19:03 Total Bilirubin 0.4 (0.2-1.3) mg/dL AST 27 (17-59) U/L ALT 28 (6-50) U/L Alkaline Phosphatase 80 (38-126) U/L Albumin 4.2 (3.5-5.1) g/dL Imaging Knee x-ray: Radiologist's impression: ITS Impressions Knee X-Ray 04/01/25 18:44 IMPRESSION: 1. Marked relatively dense prepatellar soft tissue swelling which suggests either hematoma setting of prior trauma or prepatellar bursitis. 2. 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 Assessment and Plan Assessment and plan (1) Septic prepatellar bursitis of left knee: Code(s): M71.162 - Other infective bursitis, left knee Status: Acute Assessment and Plan: -knee X-Ray 04/01/25 18:44 IMPRESSION: 1. Marked relatively dense prepatellar soft tissue swelling which suggests either hematoma setting of prior trauma -vancomycin has been ordered. The patient failed outpatient treatment with Bactrim. -blood cultures are pending. Vital signs are stable. No Leukocytosis is noted. He is afebrile. -orthopedic physician has been consulted for possible aspiration. Quality VTE Prophylaxis VTE prophylaxis: mechanical ordered
[2025-04-02 08:11] LABS: Hematocrit 39.8 % (42.0-52.0); Hemoglobin 13.5 g/dL (14.0-18.0); Immature Granulocyte Percent A 1.2 % (0-0.5); Lymphocytes Absolute Auto 1.74 K/mm3 (0.9-3.2); Mean Corpuscular HGB Conc 33.9 g/dl (32-36); Mean Corpuscular Hemoglobin 30.4 pg (26-34); Mean Corpuscular Volume 89.6 fl (80-100); Nucleated Red Blood Cells Absolute Auto 0.000 K/mm3 (0.0-0.012); Nucleated Red Blood Cells Perc 0.0 % (0.0-0.2); Platelet Count Result 302 k/mm3 (150-375); Red Blood Count 4.44 M/mm3 (4.6-6.20); White Blood Count 6.0 K/mm3 (4.5-10.0)
[2025-04-02 08:19] LABS: Alanine Aminotransferase 21 U/L (6-50); Albumin Level 3.6 g/dL (3.5-5.1); Alkaline Phosphatase 73 U/L (38-126); Anion Gap 7 mmol/L (4-12); Aspartate Amino Transferase 22 U/L (17-59); Bilirubin,Total 0.6 mg/dL (0.2-1.3); Blood Urea Nitrogen 19 mg/dL (9-20); Calcium 8.7 mg/dL (8.4-10.2); Carbon Dioxide 22 mmol/L (22-30); Chloride 109 mmol/L (98-107); Glucose 111 mg/dL (65-110); Potassium 3.8 mmol/L (3.4-5.0); Sodium 138 mmol/L (137-145); Total Protein 6.6 g/dL (6.3-8.2)
--- NOTE | 2025-04-02 10:07 | P.PNIM_ITS ---
Progress Note: A&P Assessment and Plan (1) Septic prepatellar bursitis of left knee: Code(s): M71.162 - Other infective bursitis, left knee Status: Acute Assessment and Plan: -knee X-Ray 04/01/25 18:44 IMPRESSION: 1. Marked relatively dense prepatellar soft tissue swelling which suggests either hematoma setting of prior trauma -vancomycin has been ordered. The patient failed outpatient treatment with Bactrim. -blood cultures are pending. Vital signs are stable. WBC WDL. He is afebrile. -Ortho consult pending Plan Continue to trend labs, ortho consult, pending BC Subjective Date/time seen: 04/02/25 1343 Interval history: Intake hospitalist: This is a 69-year-old male patient who has had history of multiple areas of bursitis. The patient stated that he has had a bursa removed in the past. Stated he has been on antibiotics several times for bursitis. He stated that he is from out of town. The patient stated he went to urgent care sent him to the emergency room. Patient stated he has been having issues with his left knee with redness and swelling for the last month. The patient recently completed a 14 day course for burst from a local urgent care. The patient stated he finished all of the antibiotics without any resolution of symptoms. His white count is normal and he is afebrile. His blood sugars 125. His C reactive protein is 1.4. X-ray of the left knee was as. Marked relatively dense prepatellar soft tissue swelling which suggests either hematoma setting of prior trauma or prepatellar bursitis. 2. 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 The patient was started on vancomycin. The knee was not drained at this time. Orthopedic consultation was placed. The patient is being admitted to observation status on 04/02/2025. 04/02: Pt reports that he has a long hx with bursitis in many joints, with the most recent admission being 2-3 years ago for R elbow bursitis. Pt is OOT and is from [place] and is in town visiting. Redness and pain to L knee x1 month; area is outlined. No other issues. Review of Systems Constitutional: Constitutional: Reports as per HPI and Reports no additional constitutional complaints Eyes: Eyes: Reports as per HPI and Reports no additional eye complaints ENT: Reports system reviewed and no additional complaints, except as documented and Reports Normal hearing present Cardiovascular: Cardiovascular: Reports no additional cardiovascular complaints Respiratory: Respiratory: Reports as per HPI and Reports no additional respiratory complaints Gastrointestinal: Gastrointestinal: Reports as per HPI and Reports no additional gastrointestinal complaints Musculoskeletal: Musculoskeletal: Reports no additional musculoskeletal complaints Integumentary/Breasts: Skin/Breast: Reports system reviewed and no additional complaints, except as docu Neurologic: Reports system reviewed and no additional complaints, except as documented and Reports Normal hearing present Psychiatric: Psychiatric: Reports no additional psychiatric complaints and Reports as per HPI Hematologic/Lymphatic: Hematologic/Lymphatic: Reports no additional hematologic/lymphatic complaints Allergic/Immunologic: Allergic/Immunologic: Reports no additional allergic/immunologic complaints Exam Const: General: cooperative, healthy appearing, comfortable, no acute distress, well developed, awake, Physically active, average body habitus and well nourished Nutritional Appearance: average body habitus and well nourished Orientation/consciousness: patient oriented x3 Limitations: no limitations HENMT: Head: normal to inspection Eyes: General: appearance normal, both eyes and all related structures Alignment and Position: alignment normal Pupils: Equal, round and reactive pupils present Neck: Neck: normal visual inspection, full ROM and trachea midline Chest: Chest palpation & inspection: normal inspection of the chest Resp: Effort & Inspection: normal respiratory effort Auscultation: clear to auscultation bilaterally Percussion: percussion normal Cardio: Palpation: normal PMI Rate: regular rate Rhythm: regular rhythm GI: Inspection: normal to inspection Auscultation: normal bowel sounds Rectal Exam: deferred : General: Yes no CVA tenderness Back/Spine/Pelvis: Back: no CVA tenderness Cervical Spine: cervical ROM normal Thoracic/Lumbar Spine: thoracic and lumbar spine normal to inspection Pelvis: no pain with anterior-posterior compression Skin: General skin exam: normal color Other: Erythema and swelling throughout the whole anterior aspect of the patella. No open areas or drainage noted. Fluctuance is noticed with tenderness. Erythema area outlined. Neuro: General: oriented to person, oriented to place, oriented to time and patient oriented x3 Cranial nerves: Yes Equal, round and reactive pupils present and Yes Normal hearing present Cognition (Neuro): normal cognition Speech: normal speech Gait exam (Neuro): Normal gait present Motor exam (neuro): 5/5 motor strength present throughout Sensory Exam: normal sensation Extrem: General: normal to inspection Right upper extremity: normal to inspection and shoulder/upper arm Left upper extremity: normal to inspection and shoulder/upper arm Right lower extremity: normal to inspection Left lower extremity: normal to inspection Psych: Appearance: grossly normal Mental Status: mental status grossly normal Speech and movement: Normal speech and movement present Affect: normal affect Attitude: cooperative Thought process: Normal thought process present Insight: Good insight present (Psych) Judgement: Good judgement present (Psych) Objective Data Vital Signs Vital Signs: Vital Signs - 24 hr 04/01/25 15:40 04/01/25 19:01 04/01/25 19:48 Temperature 98.2 F 97.9 F Pulse Rate 91 65 62 Respiratory Rate 18 15 18 Blood Pressure 168/76 H 139/78 154/80 H Pulse Oximetry 98 98 99 Oxygen Delivery Room Air 04/01/25 22:23 04/02/25 00:17 04/02/25 06:00 Temperature 98.1 F 97.6 F 97.2 F L Pulse Rate 63 64 60 Respiratory Rate 18 18 18 Blood Pressure 126/71 157/83 H 142/74 H Pulse Oximetry 100 99 98 Oxygen Delivery Intake/Output Intake/Output: Intake & Output 03/30/25 03/31/25 04/01/25 04/02/25 23:59 23:59 23:59 23:59 Intake Total 250 Balance 250 Meds/Results Medications: Active Medications Generic Name Dose Route Start Last Admin Trade Name Freq PRN Reason Stop Dose Admin Vancomycin HCl 1,500 mg in 500 mls @ 250 mls/hr 04/02/25 15:00 Vancomycin 1,500 Mg/Ns 500 Ml IVPB Q18H [facility] Radiology Results: ITS Impressions Knee X-Ray 04/01/25 18:44 IMPRESSION: 1. Marked relatively dense prepatellar soft tissue swelling which suggests either hematoma setting of prior trauma or prepatellar bursitis. 2. 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 Labs Labs: Laboratory Results - last 24 hr 04/01/25 04/02/25 19:03 05:31 WBC 6.4 6.0 RBC 4.71 4.44 L Hgb 14.2 13.5 L Hct 41.9 L 39.8 L MCV 89.0 89.6 MCH 30.1 30.4 MCHC 33.9 33.9 RDW 12.8 12.8 Plt Count 336 302 MPV 8.6 9.0 Immature Gran % (Auto) 0.3 1.2 H Neut % (Auto) 57.7 55.5 Lymph % (Auto) 29.9 28.8 [place] % (Auto) 8.7 H 10.3 H Eos % (Auto) 2.5 3.0 Baso % (Auto) 0.9 1.2 Lymph # (Auto) 1.92 1.74 [place] # (Auto) 0.6 0.6 Eos # (Auto) 0.2 0.2 Baso # (Auto) 0.1 0.1 Abs Immat Gran (auto) 0.02 0.07 H Absolute Neuts (auto) 3.7 3.4 Absolute Nucleated RBC 0.000 0.000 Nucleated RBC % 0.0 0.0 ESR 26 H Sodium 141 138 Potassium 4.0 3.8 Chloride 106 109 H Carbon Dioxide 26 22 Anion Gap 9 7 BUN 22 H 19 Creatinine 1.00 0.78 Estim Creat Clear Calc 76 96 Estimated GFR > 60 > 60 Glucose 125 H 111 H Lactic Acid 1.5 Uric Acid 5.8 Calcium 9.4 8.7 Total Bilirubin 0.4 0.6 AST 27 22 ALT 28 21 Alkaline Phosphatase 80 73 C-Reactive Protein 1.4 H Total Protein 7.7 6.6 Albumin 4.2 3.6 Quality VTE Prophylaxis VTE prophylaxis: mechanical ordered
[2025-04-02 13:54] VITALS: BP 133/71; PULSE 60; RESP 18; TEMP 36.3; O2SAT 97
[2025-04-02] MEDS: VANCOMYCIN 1,500 MG/NS 500 ML 1,500 MG/500 ML BAG 250 MG IVPB (14:24)
--- NOTE | 2025-04-02 17:12 | PM.CNOR ---
Assessment and Plan Assessment and plan (1) Septic prepatellar bursitis of left knee: Code(s): M71.162 - Other infective bursitis, left knee Status: Acute Assessment and Plan: 69 yr old male with no history of Diabetes with a 2 week history of Left Knee Pre patellar bursitis. 10 Days Keflex by Primary care provider with no clinical response. Patient reports a many year history of bilateral elbow and knee bursitis that has not responded well to oral keflex. He is not aware of ever being diagnosed with MRSA bursitis. No fevers or chills. CRP and WBC unremarkable. Seen in the ED and admitted for IV Vanc. Visiting from [place], [place]. Will be leaving [place] Monday next week and does not plan on returning to this area. He will follow up with primary care provider in [place]. 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 - already clinically improving (according to patient) on IV Vanc - will continue to follow clinically and examine tomorrow. If lack of clinical improvement we will take patient to the OR for formal Left Knee Bursectomy with Irrigation and debridement. - NPO after midnight. History of Present Illness HPI Consult date: 04/02/25 Chief complaint: Left knee prepatellar bursitis Narrative: 69 yr old male with no history of Diabetes with a 2 week history of Left Knee Pre patellar bursitis. 10 Days Keflex by Primary care provider with no clinical response. Patient reports a many year history of bilateral elbow and knee bursitis that has not responded well to oral keflex. He is not aware of ever being diagnosed with MRSA bursitis. No fevers or chills. CRP and WBC unremarkable. Seen in the ED and admitted for IV Vanc. Visiting from [place], [place]. Will be leaving [place] Monday next week and does not plan on returning to this area. He will follow up with primary care provider in [place]. 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 [facility] Past Medical History Medical History (Updated 04/02/25 @ 07:58 by Arianna Perez APRN) Small bowel obstruction Ruptured appendix Kidney stone Bursitis No active medical problems Surgical History Surgical History (Updated 04/02/25 @ 07:55 by Arianna Perez APRN) H/O hernia repair H/O cataract extraction H/O eye surgery History of appendectomy Family History Family History Father Myocardial infarct Sibling Myocardial infarct Cancer Grandparent Cancer Social History Social History (Updated 04/02/25 @ 07:56 by Arianna Perez APRN) Social History: The patient lives with his . He has 3 children. 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 Code status: Full code. Smoking status: Never smoker Alcohol intake: never Drinks per week: 1 Substance use: never Substance use type: does not use Lack of Transportation: No Lack of Food: Never True Current Housing: I Have Housing Concerned About Future Housing: No Difficulty Paying Gas/Electric Bills: No Difficulty Paying for Meds: No Currently Unemployed: No Education: Decline to Answer Difficulty w/ Childcare or Family Care: No Spiritual care concerns: No Meds Home Medications and Allergies Home Medications ?Medication ?Instructions ?Recorded ?Confirmed ?Type ascorbate calcium (vitamin C) 5,000 mg PO DAILY 04/02/25 04/02/25 History cholecalciferol (vitamin D3) 5,000 mcg PO DAILY 04/02/25 04/02/25 History fish [id number]-vit C-vit E 3 g PO DAILY 04/02/25 04/02/25 History Allergies Allergy/AdvReac Type Severity Reaction Status Date / Time No Known Allergies Allergy Verified 04/02/25 00:03 Vital Signs Vital Signs - 24 hr 04/01/25 19:01 04/01/25 19:48 04/01/25 22:23 Temperature 36.6 C 36.7 C Pulse Rate 65 62 63 Respiratory Rate 15 18 18 Blood Pressure 139/78 154/80 H 126/71 Pulse Oximetry 98 99 100 Oxygen Delivery 04/02/25 00:17 04/02/25 06:00 04/02/25 08:00 Temperature 36.4 C 36.2 C L Pulse Rate 64 60 Respiratory Rate 18 18 Blood Pressure 157/83 H 142/74 H Pulse Oximetry 99 98 Oxygen Delivery Room Air 04/02/25 13:54 Temperature 36.3 C L Pulse Rate 60 Respiratory Rate 18 Blood Pressure 133/71 Pulse Oximetry 97 Oxygen Delivery Exam Narrative: Left Knee with large effusion into the pre-patellar bursa. No drainage. Minimal warmth, moderate erythema. No pain with palpation and no knee pain with range of motion. Area of involvement is about 5x4 inches. Const: General: cooperative, healthy appearing, comfortable, no acute distress, well developed, alert and awake Nutritional Appearance: average body habitus Orientation/consciousness: oriented to person, oriented to place and oriented to time Results Labs 04/02/25 05:31 04/02/25 05:31 Labs: Abnormal lab results 04/01/25 04/02/25 Range/Units 19:03 05:31 RBC 4.44 L (4.6-6.20) M/mm3 Hgb 13.5 L (14.0-18.0) g/dL Hct 41.9 L 39.8 L (42.0-52.0) % Immature Gran % (Auto) 1.2 H (0-0.5) % [place] % (Auto) 8.7 H 10.3 H (2.6-8.5) % Abs Immat Gran (auto) 0.07 H (0.00-0.031) K/mm3 ESR 26 H (0-20) mm/hr Chloride 109 H (98-107) mmol/L BUN 22 H (9-20) mg/dL Glucose 125 H 111 H (65-110) mg/dL C-Reactive Protein 1.4 H (<1.0) mg/dL H & H 04/01/25 04/02/25 Range/Units 19:03 05:31 Hgb 14.2 13.5 L (14.0-18.0) g/dL Hct 41.9 L 39.8 L (42.0-52.0) % All other labs normal.
[2025-04-02 21:47] VITALS: BP 139/71; PULSE 67; RESP 16; TEMP 36.7; O2SAT 97
[2025-04-03] VITALS (11 sets, daily range): BP systolic 101–161; BP diastolic 59–86; PULSE 47–66; RESP 12–18; TEMP 36.1–36.7; O2SAT 96–100
[2025-04-03 07:44] LABS: Hematocrit 40.9 % (42.0-52.0); Hemoglobin 14.1 g/dL (14.0-18.0); Immature Granulocyte Percent A 0.3 % (0-0.5); Lymphocytes Absolute Auto 1.87 K/mm3 (0.9-3.2); Mean Corpuscular HGB Conc 34.5 g/dl (32-36); Mean Corpuscular Hemoglobin 30.3 pg (26-34); Mean Corpuscular Volume 88.0 fl (80-100); Nucleated Red Blood Cells Absolute Auto 0.000 K/mm3 (0.0-0.012); Nucleated Red Blood Cells Perc 0.0 % (0.0-0.2); Platelet Count Result 293 k/mm3 (150-375); Red Blood Count 4.65 M/mm3 (4.6-6.20); White Blood Count 6.7 K/mm3 (4.5-10.0)
[2025-04-03 08:07] LABS: Alanine Aminotransferase 25 U/L (6-50); Albumin Level 3.7 g/dL (3.5-5.1); Alkaline Phosphatase 79 U/L (38-126); Anion Gap 6 mmol/L (4-12); Aspartate Amino Transferase 29 U/L (17-59); Bilirubin,Total 0.8 mg/dL (0.2-1.3); Blood Urea Nitrogen 16 mg/dL (9-20); CRP 1.3 mg/dL (<1.0); Calcium 8.9 mg/dL (8.4-10.2); Carbon Dioxide 23 mmol/L (22-30); Chloride 105 mmol/L (98-107); Estimated CRCL calculation 90 ml/min; Estimated Glomerular Filt Rate > 60; Glucose 113 mg/dL (65-110); Potassium 4.2 mmol/L (3.4-5.0); Sodium 134 mmol/L (137-145); Total Protein 6.8 g/dL (6.3-8.2)
[2025-04-03] MEDS: VANCOMYCIN 2,000 MG/NS 500 ML 2,000 MG/500 ML BAG 250 MG IVPB ×2 (09:08→20:57)
--- NOTE | 2025-04-03 12:24 | WPDHPUPDATE1 ---
History and Physical Update Update Date/Time: 04/03/25 12:24 History and Physical has been reviewed, including an updated exam of the patient. There are NO changes in the patient's condition. Risks, benefits, and alternatives have been discussed and questions answered. Patient agrees to proceed with procedure. Left Knee Prepatellar Bursectomy with Irrigation and debridement. Risks inlcude but are not limited to: persistent infection requiring additional surgery, DVT. He agrees to proceed.
--- NOTE | 2025-04-03 12:45 | P.PNIM_ITS ---
Progress Note: A&P Assessment and Plan (1) Septic prepatellar bursitis of left knee: Code(s): M71.162 - Other infective bursitis, left knee Status: Acute Assessment and Plan: -knee X-Ray 04/01/25 18:44 IMPRESSION: 1. Marked relatively dense prepatellar soft tissue swelling which suggests either hematoma setting of prior trauma -vancomycin has been ordered. The patient failed outpatient treatment with Bactrim. -blood cultures are pending. Vital signs are stable. No Leukocytosis is noted. He is afebrile. -orthopedic physician has been consulted for possible aspiration. 04/03: Ortho note 04/02: - already clinically improving (according to patient) on IV Vanc - will continue to follow clinically and examine tomorrow. If lack of clinical improvement we will take patient to the OR for formal Left Knee Bursectomy with Irrigation and debridement. - NPO after midnight. Per ortho 04/03, plan for surgery today, will re-evaluate tomorrow. Plan Surgery today with ortho, trend labs in the AM Time Spent With Patient Time: 10 Subjective Date/time seen: 04/03/25 12:35 Interval history: Intake hospitalist: This is a 69-year-old male patient who has had history of multiple areas of bursitis. The patient stated that he has had a bursa removed in the past. Stated he has been on antibiotics several times for bursitis. He stated that he is from out of town. The patient stated he went to urgent care sent him to the emergency room. Patient stated he has been having issues with his left knee with redness and swelling for the last month. The patient recently completed a 14 day course for burst from a local urgent care. The patient stated he finished all of the antibiotics without any resolution of symptoms. His white count is normal and he is afebrile. His blood sugars 125. His C reactive protein is 1.4. X-ray of the left knee was as. Marked relatively dense prepatellar soft tissue swelling which suggests either hematoma setting of prior trauma or prepatellar bursitis. 2. 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 The patient was started on vancomycin. The knee was not drained at this time. Orthopedic consultation was placed. The patient is being admitted to observation status on 04/02/2025. 04/02: Pt reports that he has a long hx with bursitis in many joints, with the most recent admission being 2-3 years ago for R elbow bursitis. Pt is OOT and is from [place] and is in town visiting. Redness and pain to L knee x1 month; area is outlined. No other issues. 04/03: Pt reporting pain and sx the same today. Plan for surgery today with D/C tomorrow per ortho surg. Review of Systems Constitutional: Constitutional: Reports as per HPI and Reports no additional constitutional complaints Eyes: Eyes: Reports as per HPI and Reports no additional eye complaints ENT: Reports system reviewed and no additional complaints, except as do cumented and Reports Normal hearing present Cardiovascular: Cardiovascular: Reports no additional cardiovascular complaints Respiratory: Respiratory: Reports as per HPI and Reports no additional respiratory complaints Gastrointestinal: Gastrointestinal: Reports as per HPI and Reports no additional gastrointestinal complaints Musculoskeletal: Musculoskeletal: Reports no additional musculoskeletal complaints Integumentary/Breasts: Skin/Breast: Reports system reviewed and no additional complaints, except as docu Neurologic: Reports system reviewed and no additional complaints, except as documented and Reports Normal hearing present Psychiatric: Psychiatric: Reports no additional psychiatric complaints and Reports as per HPI Hematologic/Lymphatic: Hematologic/Lymphatic: Reports no additional hematologic/lymphatic complaints Allergic/Immunologic: Allergic/Immunologic: Reports no additional allergic/immunologic complaints Exam Const: General: cooperative, healthy appearing, comfortable, no acute distress, well developed, awake, Physically active, average body habitus and well nourished Nutritional Appearance: average body habitus and well nourished Orientation/consciousness: oriented to person, oriented to place, oriented to time and patient oriented x3 Limitations: no limitations HENMT: Head: normal to inspection Eyes: General: appearance normal, both eyes and all related structures Alignment and Position: alignment normal Pupils: Equal, round and reactive pupils present Neck: Neck: normal visual inspection, full ROM and trachea midline Chest: Chest palpation & inspection: normal inspection of the chest Resp: Effort & Inspection: normal respiratory effort Auscultation: clear to auscultation bilaterally Percussion: percussion normal Cardio: Palpation: normal PMI Rate: regular rate Rhythm: regular rhythm GI: Inspection: normal to inspection Auscultation: normal bowel sounds Rectal Exam: deferred : General: Yes no CVA tenderness Back/Spine/Pelvis: Back: no CVA tenderness Cervical Spine: cervical ROM normal Thoracic/Lumbar Spine: thoracic and lumbar spine normal to inspection Pelvis: no pain with anterior-posterior compression Skin: General skin exam: normal color Other: Erythema and swelling throughout the whole anterior aspect of the patella. No open areas or drainage noted. Fluctuance is noticed with tenderness. Erythema area outlined. Neuro: General: oriented to person, oriented to place, oriented to time and patient oriented x3 Cranial nerves: Yes Equal, round and reactive pupils present and Yes Normal hearing present Cognition (Neuro): normal cognition Speech: normal speech Gait exam (Neuro): Normal gait present Motor exam (neuro): 5/5 motor strength present throughout Sensory Exam: normal sensation Extrem: General: normal to inspection Right upper extremity: normal to inspection and shoulder/upper arm Left upper extremity: normal to inspection and shoulder/upper arm Right lower extremity: normal to inspection Left lower extremity: normal to inspection Psych: Appearance: grossly normal Mental Status: mental status grossly normal Speech and movement: Normal speech and movement present Affect: normal affect Attitude: cooperative Thought process: Normal thought process present Insight: Good insight present (Psych) Judgement: Good judgement present (Psych) Objective Data Vital Signs Vital Signs: Vital Signs - 24 hr 04/02/25 13:54 04/02/25 21:47 04/03/25 06:00 Temperature 97.3 F L 98.1 F 97.7 F Pulse Rate 60 67 56 L Respiratory Rate 18 16 16 Blood Pressure 133/71 139/71 138/80 Pulse Oximetry 97 97 98 Intake/Output Intake/Output: Intake & Output 03/31/25 04/01/25 04/02/25 04/03/25 23:59 23:59 23:59 23:59 Intake Total 250 900 600 Balance 250 900 600 Meds/Results Medications: Active Medications Generic Name Dose Route Start Last Admin Trade Name Freq PRN Reason Stop Dose Admin Vancomycin HCl 2,000 mg in 500 mls @ 250 mls/hr 04/03/25 09:00 04/03/25 09:08 Vancomycin 2,000 Mg/Ns 500 Ml IVPB 250 mls/hr Q12H JOELLEN Administration Radiology Results: ITS Impressions Knee X-Ray 04/01/25 18:44 IMPRESSION: 1. Marked relatively dense prepatellar soft tissue swelling which suggests either hematoma setting of prior trauma or prepatellar bursitis. 2. 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 Labs Labs: Laboratory Results - last 24 hr 04/03/25 07:33 WBC 6.7 RBC 4.65 Hgb 14.1 Hct 40.9 L MCV 88.0 MCH 30.3 MCHC 34.5 RDW 12.5 Plt Count 293 MPV 8.4 Immature Gran % (Auto) 0.3 Neut % (Auto) 58.7 Lymph % (Auto) 27.8 [place] % (Auto) 9.1 H Eos % (Auto) 3.1 Baso % (Auto) 1.0 Lymph # (Auto) 1.87 [place] # (Auto) 0.6 Eos # (Auto) 0.2 Baso # (Auto) 0.1 Abs Immat Gran (auto) 0.02 Absolute Neuts (auto) 3.9 Absolute Nucleated RBC 0.000 Nucleated RBC % 0.0 Sodium 134 L Potassium 4.2 Chloride 105 Carbon Dioxide 23 Anion Gap 6 BUN 16 Creatinine 0.83 Estim Creat Clear Calc 90 Estimated GFR > 60 Glucose 113 H Calcium 8.9 Total Bilirubin 0.8 AST 29 ALT 25 Alkaline Phosphatase 79 C-Reactive Protein 1.3 H Total Protein 6.8 Albumin 3.7 Vancomycin Trough 7.7 L Quality VTE Prophylaxis VTE prophylaxis: mechanical ordered
[2025-04-03] MEDS: LACTATED RINGERS 1,000 ML 30 ML IV CONT (14:40)
--- NOTE | 2025-04-03 15:11 | P.PNAN_ITS ---
Anes - Initial Pre Proc Eval Procedure: Operation Date: 04/03/25 15:00 Proposed Procedures p Incision And Drainage Left Knee With Bursectomy - Khalif Hernández MD Date/Time: 04/03/25 15:11 Surgeon: Rocio Merrill MD Pre Op Diagnosis: Left knee prepatellar bursitis Patient Data Age: 69 Gender: M Height: 1.8 m Weight: 101.6 kg Last Vital Signs Temp 36.6 C 04/03/25 14:06 Pulse 65 04/03/25 14:06 Resp 18 04/03/25 14:06 BP 140/79 04/03/25 14:06 Pulse Ox 99 04/03/25 14:06 O2 Del Method Room Air 04/03/25 14:06 Allergies Allergy/AdvReac Type Severity Reaction Status Date / Time No Known Allergies Allergy Verified 04/02/25 00:03 Home Medications ?Medication ?Instructions ?Recorded ?Confirmed ?Type ascorbate calcium (vitamin C) 5,000 mg PO DAILY 04/02/25 History cholecalciferol (vitamin D3) 5,000 mcg PO DAILY 04/02/25 History fish wuy-wcdyx-4-vit C-vit E 3 g PO DAILY 04/02/2507/27 History Laboratory Tests 04/03/25 07:33 WBC 6.7 K/mm3 (4.5-10.0) RBC 4.65 M/mm3 (4.6-6.20) Hgb 14.1 g/dL (14.0-18.0) Hct 40.9 L % (42.0-52.0) MCV 88.0 fl (80-100) MCH 30.3 pg (26-34) MCHC 34.5 g/dl (32-36) RDW 12.5 % (11.5-14.5) Plt Count 293 k/mm3 (150-375) MPV 8.4 fl (7.4-10.4) Immature Gran % (Auto) 0.3 % (0-0.5) Neut % (Auto) 58.7 % (45.5-73.1) Lymph % (Auto) 27.8 % (18.3-44.2) [place] % (Auto) 9.1 H % (2.6-8.5) Eos % (Auto) 3.1 % (0-4.4) Baso % (Auto) 1.0 % (0.2-1.2) Lymph # (Auto) 1.87 K/mm3 (0.9-3.2) [place] # (Auto) 0.6 K/mm3 (0.1-0.6) Eos # (Auto) 0.2 K/mm3 (0-0.3) Baso # (Auto) 0.1 K/mm3 (0.0-0.1) Abs Immat Gran (auto) 0.02 K/mm3 (0.00-0.031) Absolute Neuts (auto) 3.9 K/mm3 (1.3-6.7) Absolute Nucleated RBC 0.000 K/mm3 (0.0-0.012) Nucleated RBC % 0.0 % (0.0-0.2) Sodium 134 L mmol/L (137-145) Potassium 4.2 mmol/L (3.4-5.0) Chloride 105 mmol/L (98-107) Carbon Dioxide 23 mmol/L (22-30) Anion Gap 6 mmol/L (4-12) BUN 16 mg/dL (9-20) Creatinine 0.83 mg/dL (0.7-1.3) Estim Creat Clear Calc 90 ml/min Estimated GFR > 60 (59 - ) Glucose 113 H mg/dL (65-110) Calcium 8.9 mg/dL (8.4-10.2) Total Bilirubin 0.8 mg/dL (0.2-1.3) AST 29 U/L (17-59) ALT 25 U/L (6-50) Alkaline Phosphatase 79 U/L (38-126) C-Reactive Protein 1.3 H mg/dL (<1.0) Total Protein 6.8 g/dL (6.3-8.2) Albumin 3.7 g/dL (3.5-5.1) Vancomycin Trough 7.7 L ug/mL (10.0-20.0) Patient hx anesthesia problems: none Family hx anesthesia problems: none Results Review: All pre-operative results and documents have been reviewed as part of the pre- operative evaluation. [facility]LY [facility] Past Medical History Medical History (Updated 04/03/25 @ 15:12 by Johann Núñez MD) Obesity Kidney stone Bursitis Surgical History Surgical History (Updated 04/03/25 @ 15:15 by Johann Núñez MD) H/O exploratory laparotomy H/O hernia repair H/O cataract extraction H/O eye surgery History of appendectomy Family History Family History Father Myocardial infarct Sibling Myocardial infarct Cancer Grandparent Cancer Social History Social History (Updated 04/02/25 @ 07:56 by Arianna Perez APRN) Social History: The patient lives with his . He has 3 children. 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 Code status: Full code. Smoking status: Never smoker Alcohol intake: never Drinks per week: 1 Substance use: never Substance use type: does not use Lack of Transportation: No Lack of Food: Never True Current Housing: I Have Housing Concerned About Future Housing: No Difficulty Paying Gas/Electric Bills: No Difficulty Paying for Meds: No Currently Unemployed: No Education: Decline to Answer Difficulty w/ Childcare or Family Care: No Spiritual care concerns: No Anes - Eval Final PreProcedure Day of Procedure 04/03/25 15:11 Patient weight: obese Heart: regular rate and rhythm Lungs: clear to auscultation Airway: Mallampati scale class II Neurological: alert and oriented Last oral intake: >/= 8 hours ASA classification: II Emergent: no Anesthetic plan: proceed Anesthesia type and monitoring: general LMA and standard monitoring Results Review: All pre-operative results and documents have been reviewed as part of the pre- operative evaluation. Informed Consent: The patient's anesthetic plan and its attendant risks and benefits were d iscussed with the patient/family/POA. Questions were solicited and answers provided to the satisfaction of the patient/family/POA.
--- NOTE | 2025-04-03 16:53 | W.PM.PROC2 ---
Procedure Note - Detailed Date of Procedure 04/03/25 Pre-op Diagnosis Left knee prepatellar bursitis Post-op Diagnosis Same Procedure Performed Left knee prepatellar bursectomy and Irrigation and sharp debridement Surgeon Khalif Hernández MD Anesthesia General Indications Infection Findings Infx Description of Procedure Supine position, Gen anesthesia, timeout performed. No tourniquet - incision over the anterior knee, cx obtained - bursa identified, sharply removed and sent to pathology. irrigation, then closed with interupted nylon suture. bandaged in sterile fashion and tx to recovery in stable condition. Estimated Blood Loss 100 Drains No Packing No Pathology Yes Complications No immediate complications Condition Stable Disposition PACU
--- NOTE | 2025-04-03 17:12 | SUR.OPER ---
Cultures x 3 taken to pathology by Candace MCKEON at 1710. Nacho in pathology stated to put them on the table.
[2025-04-03] MEDS: fentaNYL CITRATE INJ (*CRX) 100 MCG/2 ML VIAL 25 MCG IV PUSH ×8 (17:14→17:47)
[2025-04-03] MEDS: ONDANSETRON INJ 4 MG/2 ML VIAL IV PUSH (18:55)
[2025-04-03] MEDS: HYDROcodone/acetaminophen (*CRX) 5-325 MG TABLET 1 TAB PO (18:57)
[2025-04-03] MEDS: KETOROLAC 30 MG/ML VIAL (*BKC) IV PUSH ×2 (18:58→23:35)
[2025-04-04 00:08] VITALS: BP 115/55; PULSE 60; RESP 18; TEMP 36.3; O2SAT 94
[2025-04-04 04:08] VITALS: BP 125/72; PULSE 60; RESP 18; TEMP 36.4; O2SAT 97
[2025-04-04] MEDS: KETOROLAC 30 MG/ML VIAL (*BKC) IV PUSH ×2 (05:02→13:12)
[2025-04-04 06:08] LABS: Hematocrit 38.1 % (42.0-52.0); Hemoglobin 12.7 g/dL (14.0-18.0); Immature Granulocyte Percent A 0.3 % (0-0.5); Lymphocytes Absolute Auto 1.51 K/mm3 (0.9-3.2); Mean Corpuscular HGB Conc 33.3 g/dl (32-36); Mean Corpuscular Hemoglobin 29.7 pg (26-34); Mean Corpuscular Volume 89.0 fl (80-100); Nucleated Red Blood Cells Absolute Auto 0.000 K/mm3 (0.0-0.012); Nucleated Red Blood Cells Perc 0.0 % (0.0-0.2); Platelet Count Result 268 k/mm3 (150-375); Red Blood Count 4.28 M/mm3 (4.6-6.20); White Blood Count 6.4 K/mm3 (4.5-10.0)
[2025-04-04 07:35] LABS: Alanine Aminotransferase 23 U/L (6-50); Albumin Level 3.3 g/dL (3.5-5.1); Alkaline Phosphatase 71 U/L (38-126); Anion Gap 8 mmol/L (4-12); Aspartate Amino Transferase 24 U/L (17-59); Bilirubin,Total 0.6 mg/dL (0.2-1.3); Blood Urea Nitrogen 18 mg/dL (9-20); Calcium 8.5 mg/dL (8.4-10.2); Carbon Dioxide 23 mmol/L (22-30); Chloride 106 mmol/L (98-107); Estimated CRCL calculation 83 ml/min; Estimated Glomerular Filt Rate > 60; Glucose 108 mg/dL (65-110); Potassium 3.9 mmol/L (3.4-5.0); Sodium 137 mmol/L (137-145); Total Protein 6.2 g/dL (6.3-8.2)
[2025-04-04 08:08] VITALS: BP 122/84; PULSE 55; RESP 18; TEMP 36.9; O2SAT 98
[2025-04-04] MEDS: VANCOMYCIN 2,000 MG/NS 500 ML 2,000 MG/500 ML BAG 250 MG IVPB (10:18)
[2025-04-04] MEDS: OMEGA 3 POLYUNSAT FATTY ACIDS 1 GM CAP 3 GM PO (10:19)
[2025-04-04] MEDS: HYDROcodone/acetaminophen (*CRX) 5-325 MG TABLET 1 TAB PO (10:19)
[2025-04-04] MEDS: CHOLECALCIFEROL (VITAMIN D3) 125 MCG (5,000 UNITS) TABLET BY MOUTH (10:20)
--- NOTE | 2025-04-04 14:11 | P.PNOP_ITS ---
Progress Note: A&P Assessment and Plan (1) Bursitis: Code(s): M71.9 - Bursopathy, unspecified Status: Acute Plan Ok to discharge, he will be following up with his primary care doctor in [place], [place]. - patient instructed to change dressing daily starting Monday. Dry dressing change with BRITT Wrap - suture removal in 2 weeks - recommend oral anti-biotics for 2 weeks (defer to hospitalist) - concern for MRSA Subjective Subjective Date/Time Seen: 04/04/25 14:11 Principal diagnosis: Left Knee Septic Bursitis Interval history: Feeling good today, minimal pain and ambulating Exam Narrative: Left Knee Bandaged and dry Objective Data Vital Signs Vital Signs: Vital Signs - 24 hr 04/03/25 17:01 04/03/25 17:15 04/03/25 17:30 Temperature 36.1 C L Pulse Rate 54 L 57 L 53 L Respiratory Rate 12 12 12 Blood Pressure 101/59 L 161/73 H 144/74 H Pulse Oximetry 98 100 100 Oxygen Delivery Simple Face Mask Simple Face Mask Room Air Oxygen Flow Rate 6 6 04/03/25 17:45 04/03/25 18:00 04/03/25 18:23 Temperature 36.1 C L Pulse Rate 47 L 62 52 L Respiratory Rate 12 14 18 Blood Pressure 131/81 135/86 131/60 Pulse Oximetry 98 97 100 Oxygen Delivery Room Air Room Air Oxygen Flow Rate 04/03/25 18:38 04/03/25 19:08 04/03/25 20:08 Temperature 36.4 C 36.7 C Pulse Rate 55 L 66 62 Respiratory Rate 18 18 18 Blood Pressure 138/62 127/65 128/70 Pulse Oximetry 99 98 96 Oxygen Delivery Oxygen Flow Rate 04/03/25 20:57 04/04/25 00:08 04/04/25 04:08 Temperature 36.3 C L 36.4 C Pulse Rate 60 60 Respiratory Rate 18 18 Blood Pressure 115/55 L 125/72 Pulse Oximetry 94 97 Oxygen Delivery Room Air Oxygen Flow Rate 04/04/25 08:08 04/04/25 11:17 Temperature 36.9 C Pulse Rate 55 L Respiratory Rate 18 Blood Pressure 122/84 Pulse Oximetry 98 Oxygen Delivery Room Air Oxygen Flow Rate Intake/Output Intake/Output: Intake & Output 04/01/25 04/02/25 04/03/25 04/04/25 23:59 23:59 23:59 23:59 Intake Total 656 158 6046 1140 Output Total 205 350 Balance 576 030 3033 790 Meds/Results Medications: Active Medications Generic Name Dose Route Start Last Admin Trade Name Freq PRN Reason Stop Dose Admin Hydrocodone Bitart/Acetaminophen 1 tab 04/03/25 18:37 04/04/25 10:19 Hydrocodone/Acetaminophen (*Crx) 5-325 Mg Tablet PO 1 tab Q4H PRN Administration Pain Rated 4-6 Hydrocodone Bitart/Acetaminophen 1 tab 04/03/25 18:37 Hydrocodone/Acetaminophen (*Crx) 10-325 Mg Tablet PO Q4H PRN Pain Rated 7-10 Fish Oil 3 gm 04/04/25 09:00 04/04/25 10:19 [place] 3 Polyunsat Fatty Acids 1 Gm Cap PO 3 gm QAM JOELLEN Administration Vancomycin HCl 2,000 mg in 500 mls @ 250 mls/hr 04/03/25 09:00 04/04/25 12:18 Vancomycin 2,000 Mg/Ns 500 Ml IVPB Infused Q12H JOELLEN Infusion Ketorolac Tromethamine 30 mg 04/03/25 18:40 04/04/25 13:12 Ketorolac 30 Mg/Ml Vial (*Bkc) IV PUSH 30 mg Q6HR JOELLEN Administration Ondansetron HCl 4 mg 04/03/25 18:36 04/03/25 18:55 Ondansetron Inj 4 Mg/2 Ml Vial IV PUSH 4 mg Q4H PRN Administration Nausea And Vomiting Vitamin D 125 mcg 04/04/25 09:00 04/04/25 10:20 Cholecalciferol (Vitamin D3) 125 Mcg (5,000 Units) Tablet BY MOUTH 125 mcg DAILY JOELLEN Administration Radiology Results: ITS Impressions Knee X-Ray 04/01/25 18:44 IMPRESSION: 1. Marked relatively dense prepatellar soft tissue swelling which suggests either hematoma setting of prior trauma or prepatellar bursitis. 2. 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 Labs Labs: Laboratory Results - last 24 hr 04/04/25 05:19 WBC 6.4 RBC 4.28 L Hgb 12.7 L Hct 38.1 L MCV 89.0 MCH 29.7 MCHC 33.3 RDW 12.7 Plt Count 268 MPV 8.7 Immature Gran % (Auto) 0.3 Neut % (Auto) 64.1 Lymph % (Auto) 23.5 [place] % (Auto) 8.7 H Eos % (Auto) 2.8 Baso % (Auto) 0.6 Lymph # (Auto) 1.51 [place] # (Auto) 0.6 Eos # (Auto) 0.2 Baso # (Auto) 0.0 Abs Immat Gran (auto) 0.02 Absolute Neuts (auto) 4.1 Absolute Nucleated RBC 0.000 Nucleated RBC % 0.0 Sodium 137 Potassium 3.9 Chloride 106 Carbon Dioxide 23 Anion Gap 8 BUN 18 Creatinine 0.91 Estim Creat Clear Calc 83 Estimated GFR > 60 Glucose 108 Calcium 8.5 Total Bilirubin 0.6 AST 24 ALT 23 Alkaline Phosphatase 71 Total Protein 6.2 L Albumin 3.3 L
--- NOTE | 2025-04-04 14:29 | WPDANESPN ---
Anes - Prog Note Post-Op Date/Time: 04/04/25 14:29 Cardiovascular status: normal Respiratory status: normal Airway patency: baseline Mental status: baseline Post-Op hydration status: normal Vital Signs: Last Vital Signs Temp 36.9 C 04/04/25 08:08 Pulse 55 L 04/04/25 08:08 Resp 18 04/04/25 08:08 BP 122/84 04/04/25 08:08 Pulse Ox 98 04/04/25 08:08 O2 Del Method Room Air 04/04/25 11:17 O2 Flow Rate 6 04/03/25 17:15 Pain Score (VAS): 2 I/O: Intake & Output 04/03/25 04/04/25 04/04/25 23:59 07:59 15:59 Intake Total 840 1140 Output Total 205 350 Balance 635 -350 1140 Laboratory Tests 04/04/25 05:19 04/04/25 05:19 04/04/25 05:19 WBC 6.4 RBC 4.28 L Hgb 12.7 L Hct 38.1 L MCV 89.0 MCH 29.7 MCHC 33.3 RDW 12.7 Plt Count 268 MPV 8.7 Immature Gran % (Auto) 0.3 Neut % (Auto) 64.1 Lymph % (Auto) 23.5 [place] % (Auto) 8.7 H Eos % (Auto) 2.8 Baso % (Auto) 0.6 Lymph # (Auto) 1.51 [place] # (Auto) 0.6 Eos # (Auto) 0.2 Baso # (Auto) 0.0 Abs Immat Gran (auto) 0.02 Absolute Neuts (auto) 4.1 Absolute Nucleated RBC 0.000 Nucleated RBC % 0.0 Sodium 137 Potassium 3.9 Chloride 106 Carbon Dioxide 23 Anion Gap 8 BUN 18 Creatinine 0.91 Estim Creat Clear Calc 83 Estimated GFR > 60 Glucose 108 Calcium 8.5 Total Bilirubin 0.6 AST 24 ALT 23 Alkaline Phosphatase 71 Total Protein 6.2 L Albumin 3.3 L Microbiology 04/03/25 16:46 Bursa Gram Stain - Final 04/03/25 16:33 Knee Left Gram Stain - Final 04/03/25 16:33 Knee Left Gram Stain - Final 04/01/25 19:03 Blood Blood Culture - Preliminary 04/01/25 19:14 Blood Blood Culture - Preliminary Post-procedural complaints: none Patient Feedback: Patient satisfied with anesthetic care.
[2025-04-04 14:44] VITALS: BP 130/71; PULSE 64; RESP 18; TEMP 36.6; O2SAT 97
--- NOTE | 2025-04-04 15:02 | P.DS_ITS ---
DS: Admitting Diagnosis Discharge Date 04/04/2025 Admitting Diagnosis Bursitis DS: Discharge Diagnosis Discharge Diagnosis (1) Septic prepatellar bursitis of left knee: Code(s): M71.162 - Other infective bursitis, left knee Status: Acute Assessment and Plan: -knee X-Ray 04/01/25 18:44 IMPRESSION: 1. Marked relatively dense prepatellar soft tissue swelling which suggests either hematoma setting of prior trauma -vancomycin has been ordered. The patient failed outpatient treatment with Bactrim. -blood cultures are pending. Vital signs are stable. No Leukocytosis is noted. He is afebrile. -orthopedic physician has been consulted for possible aspiration. 04/03: Ortho note 04/02: - already clinically improving (according to patient) on IV Vanc - will continue to follow clinically and examine tomorrow. If lack of clinical improvement we will take patient to the OR for formal Left Knee Bursectomy with Irrigation and debridement. - NPO after midnight. Per ortho 04/03, plan for surgery today, will re-evaluate tomorrow. 04/04: Pt feeling good today post op day x1. Agrees with the plan for D/C. Leg wrapped in surgical dressing. -BC pending (2) Bursitis: Code(s): M71.9 - Bursopathy, unspecified Status: Acute Plan Surgery today with ortho, trend labs in the AM DS: Summary Hospital Course Reason for hospitalization: Bursitis Hospital Course: Pt to the ED for L knee pain x2 weeks. Pt with a strong hx of multiple joint bursitis with surgical repair. Pt with recent oral Keflex x2 week course via UC with no relief. Pt with edema and erythema to L knee. VSS and labs WDL in ED. L knee XR yielding 1. Marked relatively dense prepatellar soft tissue swelling which suggests either hematoma setting of prior trauma or prepatellar bursitis. 2. At least mild tricompartmental osteoarthritis the left knee with no knee joint effusion or acute osseous abnormality.. Pt admitted for observation with vancomycin. Ortho consulted and took him to surgery 04/03; surgery went well. Pt feeling fine post op day one, per ortho, OK for D/C with x2 weeks of MRSA abx coverage (discussed with ID pharm and will rx Bactrim). Pt to f/u with his PCP with suture removal in x2 weeks. Time Spent with Patient Time attestation: Total time spent providing and/or coordinating discharge services: Exam Const: General: cooperative, healthy appearing, comfortable, no acute distress, well developed, awake, Physically active, average body habitus and well nourished Nutritional Appearance: average body habitus and well nourished Orientation/consciousness: oriented to person, oriented to place, oriented to time and patient oriented x3 Limitations: no limitations HENMT: Head: normal to inspection Eyes: General: appearance normal, both eyes and all related structures Alignment and Position: alignment normal Pupils: Equal, round and reactive pupils present Neck: Neck: normal visual inspection, full ROM and trachea midline Chest: Chest palpation & inspection: normal inspection of the chest Resp: Effort & Inspection: normal respiratory effort Auscultation: clear to auscultation bilaterally Percussion: percussion normal Cardio: Palpation: normal PMI Rate: regular rate Rhythm: regular rhythm GI: Inspection: normal to inspection Auscultation: normal bowel sounds Rectal Exam: deferred : General: Yes no CVA tenderness Back/Spine/Pelvis: Back: no CVA tenderness Cervical Spine: cervical ROM n ormal Thoracic/Lumbar Spine: thoracic and lumbar spine normal to inspection Pelvis: no pain with anterior-posterior compression Skin: General skin exam: normal color Other: L knee surgical dressing applied, GÓMEZ Neuro: General: oriented to person, oriented to place, oriented to time and patient oriented x3 Cranial nerves: Yes Equal, round and reactive pupils present and Yes Normal hearing present Cognition (Neuro): normal cognition Speech: normal speech Gait exam (Neuro): Normal gait present Motor exam (neuro): 5/5 motor strength present throughout Sensory Exam: normal sensation Extrem: General: normal to inspection Right upper extremity: normal to inspection and shoulder/upper arm Left upper extremity: normal to inspection and shoulder/upper arm Right lower extremity: normal to inspection Left lower extremity: normal to inspection Psych: Appearance: grossly normal Mental Status: mental status grossly normal Speech and movement: Normal speech and movement present Affect: normal affect Attitude: cooperative Thought process: Normal thought process present Insight: Good insight present (Psych) Judgement: Good judgement present (Psych) DS: Data Data Completed and Pending Completed studies during hospitalization: L knee XR, labs Labs on day of discharge: Labs from last 24 hours 04/04/25 05:19 WBC 6.4 RBC 4.28 L Hgb 12.7 L Hct 38.1 L MCV 89.0 MCH 29.7 MCHC 33.3 RDW 12.7 Plt Count 268 MPV 8.7 Immature Gran % (Auto) 0.3 Neut % (Auto) 64.1 Lymph % (Auto) 23.5 [place] % (Auto) 8.7 H Eos % (Auto) 2.8 Baso % (Auto) 0.6 Lymph # (Auto) 1.51 [place] # (Auto) 0.6 Eos # (Auto) 0.2 Baso # (Auto) 0.0 Abs Immat Gran (auto) 0.02 Absolute Neuts (auto) 4.1 Absolute Nucleated RBC 0.000 Nucleated RBC % 0.0 Sodium 137 Potassium 3.9 Chloride 106 Carbon Dioxide 23 Anion Gap 8 BUN 18 Creatinine 0.91 Estim Creat Clear Calc 83 Estimated GFR > 60 Glucose 108 Calcium 8.5 Total Bilirubin 0.6 AST 24 ALT 23 Alkaline Phosphatase 71 Total Protein 6.2 L Albumin 3.3 L Preliminary micro results at discharge 04/01/25 19:03 Blood Culture - Preliminary Blood 04/01/25 19:14 Blood Culture - Preliminary Blood Procedures/Treatments: L knee orthopedic surgery Discharge Plan Discharge Attending physician on discharge: Sonya Vaughn Consulting providers: Aliza Escobar; Sonya Vaughn; Khalif Hernández Discharging Clinician: Sonya Vaughn Anticipated Discharge Date/Time: 04/04/25 16:00 Patient Disposition: Home Activity: october shower Diet: regular Wound Care Instructions: follow printed instructions Discharge Instructions: 1. Change dressing daily starting Monday. Dry dressing change with BRITT Wrap. 2. Suture removal in 2 weeks 3. Take the antibiotic (Bactrim) x2 weeks, one pill, twice daily. 4. Take Toradol for pain as needed and I am writing you for some [place] for break through pain. While taking the Toradol, do not take any additional ibuprofen. Continue to check your blood pressure and blood sugar at home if applicable. Keep your scheduled appts with your primary care provider and any specialist that you may see. Return to the emergency department if you develop sudden shortness of breath, chest pain, a fever of greater than 101.5, or nausea, vomiting, abd pain, or diarrhea that does not go away. Follow-up with your primary care provider / holistic provider within 1-2 weeks, they will want to be updated on your inpatient stay in the hospital. Thank you for choosing [facility] for your healthcare needs. Patient Instructions: Antibiotic Form, Knee Bursitis (ED), Acute Wounds (DC) Patient Language: Kinyarwanda Stand Alone Forms: General Discharge Information Follow-up/Referrals: PHYSICIAN,AUTOMATION ENGINEERING TECHNICIAN [Primary Care Provider, Internal Medicine] - 4 Weeks Referral Note: Home PCP in [place] Discharge Medications: New hydrocodone-acetaminophen 5-325 mg Tablet 1 tablet PO Q4H PRN (Reason: Pain Rated 4-6) Qty: 5 0RF sulfamethoxazole-trimethoprim 800-160 mg Tablet 1 tab PO Q12HR 14 Days Qty: 28 0RF ketorolac 10 mg tablet 10 mg PO Q8H Qty: 15 0RF Rx Instructions: maximum total duration of 5 days from all oral, intranasal, or parenteral formulations Continued ascorbate calcium (vitamin C) [Vitamin C (ascorbate calcium)] 5,000 mg PO DAILY cholecalciferol (vitamin D3) 5,000 mcg PO DAILY fish neb-vuyxl-4-vit C-vit E 3 g PO DAILY Date of admission: 04/02/25 10:15 Primary Care Provider: PHYSICIAN,AUTOMATION ENGINEERING TECHNICIAN Admitting Provider: Rocio Merrill Attending physician on admission: Rocio Merrill Condition: Stable Quality VTE Prophylaxis VTE prophylaxis: mechanical ordered Hospitalist MIPS Heart Failure (Exclusion) Patient has history of Heart Transplant or Left Ventricular Assistive Device?: No IF YES, STOP HERE Heart Failure (Qualifier) Patient has current or prior documentation of LVEF less than or equal to 40%, or mod/servere depressed LVSF?: No IF NO, STOP HERE
--- NOTE | 2025-04-07 10:43 | PC.NURSE ---
This RN contacted pt for dc followup and pt expressed concern about redness around his site, this RN instructed him to call his primary care doctor or surgeon's office for any concerns, or go to the ER if increased signs of infection.
== END 2025-04-04 16:45 | disposition home or self-care (01) | DRG 502 ==
LOC: ANHED 21:45 → ANH3MEDSUR 23:19
PROVIDERS: Orthopaedic Surgery; Admitting Provider Internal Medicine; Emergency Provider Physician Assistant
PROC: 0MTP0ZZ Resection of Left Knee Bursa and Ligament, Open Approach (ICD-10-PCS; principal; 2025-04-03 15:00)
DX: M71.162 Other infective bursitis, left knee (principal)
CPT/HCPCS: 36415; 73562; 80053; 80202; 82565; 83605; 84550; 85025; 85652; 86140; 87040; 87070; 87075; 87205; 96365; 96366; 96376; 97161; 99285; A9270; G0378; J1885; J2003; J2250; J2405; J2704; J3010; J3373; J7120